=== PATIENT | female | born 1935 | race Caucasian/White ===

== ENCOUNTER 2018-02-19 09:22 | Inpatient (IN) ==
[2018-02-19] MEDS ORDERED: ONDANSETRON 4 MG/2 ML VIAL IV PRN (09:48)
[2018-02-19] MEDS ORDERED: MAGNESIUM SULF RIDER 4 GM in PREMIX 1 EACH IV PRN (09:48)
[2018-02-19] MEDS ORDERED: MORPHINE 4 MG/1 ML VIAL IV PRN (09:48)
[2018-02-19] MEDS ORDERED: ZALEPLON 5 MG CAPSULE PO PRN (09:48)
[2018-02-19] MEDS ORDERED: MAGNESIUM SULF RIDER 2 GM in PREMIX 1 EACH IV PRN (09:48)
[2018-02-19 12:09] LABS: Basophils % 0.3 % (0.0-0.8); Eosinophils % 0.1 % (0.00-10.9); Hematocrit 37.3 VOL% (35.7-47.0); Hemoglobin 11.5 GM/DL (12.0-16.0); Immature Granulocytes % 0.5 %; Immature Granulocytes Absolute 0.08 #; Lymphocytes # 1.3 10*3/uL (1.4-4.0); Lymphocytes % 8.4 % (21.3-54.2); Mean Corpuscular HGB Conc 30.8 GM/DL (32-36); Mean Corpuscular Hemoglobin 28 PG (27-34); Mean Corpuscular Volume 89.7 FL (87-102); Mean Platelet Volume 12.9 FL (9.6-12.0); Monocytes # 0.9 10*3/uL (0.11-0.8); Monocytes % 5.8 % (1.7-12.7); Neutrophils # 13.3 10*3/uL (1.4-7.4); Neutrophils % 84.9 % (38.7-73.9); Platelet Count 250 T/CUMM (130-400); Red Blood Count 4.16 MC/CUMM (3.8-5.5); Red Cell Distribution Width 14.2 % (9.3-17.3); White Blood Count 15.7 T/CUMM (4-12)
[2018-02-19 12:39] LABS: Albumin 3.4 G/DL (3.4-5.0); Calcium 10.6 MG/DL (8.5-10.1); Osmolality,Calculated 282.7 MOS/KG (273-304); Potassium 4.1 MMOL/L (3.5-5.1); Total Protein 7.6 G/DL (6.4-8.3)
[2018-02-19 13:24] LABS: Apearance,Urine CLEAR (Clear); Bacteria,Urine Occasional /HPF (Few); Bilirubin,Urine Negative (Negative); Blood, Urine Large mg/dL (Negative); Glucose,Urine (UA) Negative (Negative); Ketones,Urine Negative (Negative); Nitrite,Urine Negative (Negative); Protein,Urine Negative; RBC,Urine <1 /HPF (0-4); Urine Color Straw (Yellow); Urine Specific Gravity 1.005 (1.001-1.035); Urine Urobilinogen < 2.0 EU/DL (0.2-1.0); WBC,Urine <1 /HPF (0-6)
[2018-02-19] MEDS: ACETAMINOPHEN 325 MG TABLET PO PRN (14:01)
[2018-02-19] MEDS ORDERED: ASPIRIN CHEW 81 MG TABLET PO ONE (14:25)
[2018-02-19] MEDS: CARVEDILOL 3.125 MG TABLET PO SCH ×2 (14:45→21:44)
[2018-02-19] MEDS: CAPTOPRIL 6.25 MG TABLET PO SCH ×2 (14:45→21:43)
[2018-02-19] MEDS: NITROGLYCERIN 2% OINT 1 INCH/GM PACK TOP SCH ×2 (14:46→18:06)
[2018-02-19] MEDS: FUROSEMIDE 40 MG/4 ML VIAL IV SCH (16:00)
[2018-02-19 16:25] LABS: INR 3.3
[2018-02-19] MEDS ORDERED: diphenhydrAMINE CAP 25 MG CAPSULE PO PRN (16:25)
[2018-02-19] MEDS ORDERED: ENOXAPARIN 40 MG/0.4 ML SYRINGE SUBCUT SCH (17:00)
[2018-02-19 18:39] LABS: Apearance,Urine CLEAR (Clear); Bacteria,Urine Occasional /HPF (Few); Bilirubin,Urine Negative (Negative); Blood, Urine Moderate mg/dL (Negative); Glucose,Urine (UA) Negative (Negative); Hyaline Casts,Urine 5 /LPF (0-3); Ketones,Urine Negative (Negative); Mucus,Urine Occasional /LPF (Occasional); Nitrite,Urine Negative (Negative); Protein,Urine Negative; RBC,Urine 9 /HPF (0-4); Urine Color Yellow (Yellow); Urine Specific Gravity 1.008 (1.001-1.035); Urine Urobilinogen < 2.0 EU/DL (0.2-1.0); WBC,Urine 6 /HPF (0-6)
[2018-02-19] MEDS: ROSUVASTATIN 20 MG TABLET PO SCH (21:43)
[2018-02-19] MEDS: ASCORBIC ACID 500 MG TABLET PO SCH (21:44)
[2018-02-19] MEDS: ACETAMINOPHEN 500 MG TABLET PO SCH (21:44)
[2018-02-20] MEDS: NITROGLYCERIN 2% OINT 1 INCH/GM PACK TOP SCH ×3 (00:14→11:52)
[2018-02-20 04:40] LABS: Basophils # 0.1 10*3/uL (0.0-0.2); Basophils % 0.6 % (0.0-0.8); Eosinophils # 0.4 10*3/uL (0.0-0.87); Eosinophils % 4.2 % (0.00-10.9); Hematocrit 31.5 VOL% (35.7-47.0); Hemoglobin 9.9 GM/DL (12.0-16.0); Immature Granulocytes % 0.2 %; Immature Granulocytes Absolute 0.02 #; Lymphocytes # 2.3 10*3/uL (1.4-4.0); Lymphocytes % 26.9 % (21.3-54.2); Mean Corpuscular HGB Conc 31.4 GM/DL (32-36); Mean Corpuscular Hemoglobin 28 PG (27-34); Mean Corpuscular Volume 89.5 FL (87-102); Mean Platelet Volume 12.3 FL (9.6-12.0); Monocytes # 0.8 10*3/uL (0.11-0.8); Monocytes % 9.3 % (1.7-12.7); Neutrophils # 4.9 10*3/uL (1.4-7.4); Neutrophils % 58.8 % (38.7-73.9); Platelet Count 198 T/CUMM (130-400); Red Blood Count 3.52 MC/CUMM (3.8-5.5); Red Cell Distribution Width 14.1 % (9.3-17.3); White Blood Count 8.4 T/CUMM (4-12)
[2018-02-20 04:52] LABS: INR 3.7
[2018-02-20 05:03] LABS: CKMB % 5.1 %
[2018-02-20 05:10] LABS: Albumin 2.6 G/DL (3.4-5.0); Bilirubin,Total 0.9 MG/DL (0.2-1.0); Calcium 10.4 MG/DL (8.5-10.1); Osmolality,Calculated 282.5 MOS/KG (273-304); Potassium 3.8 MMOL/L (3.5-5.1); Risk Ratio 4.18; VLDL CHOLESTEROL 28.2 MG/DL
[2018-02-20 05:57] LABS: Troponin I 3.9 NG/ML (0.00-0.045)
[2018-02-20 06:03] LABS: PT Patient Result 39.3 SECS
[2018-02-20] MEDS ORDERED: PANTOPRAZOLE 40 MG TABLET PO SCH (09:00)
[2018-02-20] MEDS ORDERED: ASPIRIN EC 81 MG TABLET PO SCH (09:00)
[2018-02-20] MEDS: GLUCOSAMINE 500 MG TABLET PO SCH (09:59)
[2018-02-20] MEDS: CHOLECALCIFEROL 400 UNIT TABLET PO SCH (10:00)
[2018-02-20] MEDS: OMEGA 3 ACID ETHYL ESTERS 1 GM CAPSULE PO SCH (10:00)
[2018-02-20] MEDS: ASPIRIN CHEW 81 MG TABLET PO SCH (10:00)
[2018-02-20] MEDS: CAPTOPRIL 6.25 MG TABLET PO SCH ×2 (10:00→20:13)
[2018-02-20] MEDS: PANTOPRAZOLE 40 MG TABLET PO SCH (10:00)
[2018-02-20] MEDS: ASCORBIC ACID 500 MG TABLET PO SCH ×2 (10:00→20:13)
[2018-02-20] MEDS: ALLOPURINOL 100 MG TABLET PO SCH (10:00)
[2018-02-20] MEDS: MAGNESIUM OXIDE 400 MG TABLET PO SCH (10:00)
[2018-02-20] MEDS: ACETAMINOPHEN 500 MG TABLET PO SCH ×3 (10:01→20:12)
[2018-02-20] MEDS: CETIRIZINE 10 MG TABLET PO SCH (10:01)
[2018-02-20] MEDS: CARVEDILOL 3.125 MG TABLET PO SCH ×3 (10:01→20:13)
[2018-02-20] MEDS: FUROSEMIDE 40 MG/4 ML VIAL IV SCH ×2 (10:02→15:05)
[2018-02-20] MEDS ORDERED: GLUCAGON 1 MG VIAL IM PRN (10:18)
[2018-02-20] MEDS ORDERED: DEXTROSE 50% 25 GM/50 ML SYRINGE IV PRN (10:18)
[2018-02-20] MEDS: ALBUTEROL/IPRATROPIUM 3 ML NEB RESP TX SCH ×2 (14:50→19:24)
[2018-02-20] MEDS: ISOSORBIDE MONONITRATE 30 MG TABLET PO SCH (15:04)
[2018-02-20] MEDS: LEVOFLOXACIN INJ 500 MG in PREMIX 1 EACH IV SCH (15:05)
[2018-02-20] MEDS: ROSUVASTATIN 20 MG TABLET PO SCH (20:13)
[2018-02-21] MEDS: ALBUTEROL/IPRATROPIUM 3 ML NEB RESP TX SCH ×4 (01:02→20:20)
[2018-02-21] MEDS: CARVEDILOL 3.125 MG TABLET PO SCH ×4 (02:17→20:38)
[2018-02-21] MEDS ORDERED: ENOXAPARIN 80 MG/0.8 ML SYRINGE SUBCUT SCH (09:00)
[2018-02-21] MEDS: ASCORBIC ACID 500 MG TABLET PO SCH ×2 (09:13→20:38)
[2018-02-21] MEDS: ACETAMINOPHEN 500 MG TABLET PO SCH ×3 (09:14→20:39)
[2018-02-21] MEDS: FUROSEMIDE 40 MG/4 ML VIAL IV SCH ×2 (09:14→16:41)
[2018-02-21] MEDS: GLUCOSAMINE 500 MG TABLET PO SCH (09:15)
[2018-02-21] MEDS: CHOLECALCIFEROL 400 UNIT TABLET PO SCH (09:15)
[2018-02-21] MEDS: OMEGA 3 ACID ETHYL ESTERS 1 GM CAPSULE PO SCH (09:15)
[2018-02-21] MEDS: ALLOPURINOL 100 MG TABLET PO SCH (09:15)
[2018-02-21] MEDS: MAGNESIUM OXIDE 400 MG TABLET PO SCH (09:16)
[2018-02-21] MEDS: CAPTOPRIL 6.25 MG TABLET PO SCH ×2 (09:16→20:39)
[2018-02-21] MEDS: CETIRIZINE 10 MG TABLET PO SCH (09:16)
[2018-02-21] MEDS: ISOSORBIDE MONONITRATE 30 MG TABLET PO SCH (09:16)
[2018-02-21] MEDS: ASPIRIN CHEW 81 MG TABLET PO SCH (09:17)
[2018-02-21] MEDS: PANTOPRAZOLE 40 MG TABLET PO SCH (09:17)
[2018-02-21 10:41] LABS: INR 2.3
[2018-02-21 10:49] LABS: PT Patient Result 24.9 SECS
[2018-02-21] MEDS: NITROGLYCERIN 2% OINT 1 INCH/GM PACK TOP SCH ×2 (12:34→17:49)
[2018-02-21] MEDS: LEVOFLOXACIN INJ 500 MG in PREMIX 1 EACH IV SCH (16:41)
[2018-02-21] MEDS: ROSUVASTATIN 20 MG TABLET PO SCH (20:39)
[2018-02-22] MEDS: NITROGLYCERIN 2% OINT 1 INCH/GM PACK TOP SCH ×4 (00:07→17:40)
[2018-02-22] MEDS: ALBUTEROL/IPRATROPIUM 3 ML NEB RESP TX SCH ×4 (01:51→19:42)
[2018-02-22] MEDS: CARVEDILOL 3.125 MG TABLET PO SCH ×4 (04:33→21:10)
[2018-02-22] MEDS: FUROSEMIDE 40 MG/4 ML VIAL IV SCH ×2 (09:41→15:49)
[2018-02-22] MEDS: CAPTOPRIL 6.25 MG TABLET PO SCH ×2 (09:42→21:10)
[2018-02-22] MEDS: GLUCOSAMINE 500 MG TABLET PO SCH (09:42)
[2018-02-22] MEDS: MAGNESIUM OXIDE 400 MG TABLET PO SCH (09:43)
[2018-02-22] MEDS: CHOLECALCIFEROL 400 UNIT TABLET PO SCH (09:43)
[2018-02-22] MEDS: CETIRIZINE 10 MG TABLET PO SCH (09:43)
[2018-02-22] MEDS: ALLOPURINOL 100 MG TABLET PO SCH (09:43)
[2018-02-22] MEDS: PANTOPRAZOLE 40 MG TABLET PO SCH (09:43)
[2018-02-22] MEDS: ASCORBIC ACID 500 MG TABLET PO SCH ×2 (09:43→21:10)
[2018-02-22] MEDS: ASPIRIN CHEW 81 MG TABLET PO SCH (09:43)
[2018-02-22] MEDS: OMEGA 3 ACID ETHYL ESTERS 1 GM CAPSULE PO SCH (09:43)
[2018-02-22] MEDS: ACETAMINOPHEN 500 MG TABLET PO SCH ×3 (09:44→21:10)
[2018-02-22] MEDS: LEVOFLOXACIN INJ 500 MG in PREMIX 1 EACH IV SCH (15:47)
[2018-02-22] MEDS: ROSUVASTATIN 20 MG TABLET PO SCH (21:10)
[2018-02-23] MEDS: ALBUTEROL/IPRATROPIUM 3 ML NEB RESP TX SCH ×4 (00:32→19:36)
[2018-02-23] MEDS: NITROGLYCERIN 2% OINT 1 INCH/GM PACK TOP SCH ×5 (00:56→23:29)
[2018-02-23] MEDS: CARVEDILOL 3.125 MG TABLET PO SCH ×4 (03:44→21:10)
[2018-02-23] MEDS: GLUCOSAMINE 500 MG TABLET PO SCH (08:44)
[2018-02-23] MEDS: ACETAMINOPHEN 500 MG TABLET PO SCH ×3 (08:45→21:10)
[2018-02-23] MEDS: CHOLECALCIFEROL 400 UNIT TABLET PO SCH (08:45)
[2018-02-23] MEDS: MAGNESIUM OXIDE 400 MG TABLET PO SCH (08:45)
[2018-02-23] MEDS: FUROSEMIDE 40 MG/4 ML VIAL IV SCH ×2 (08:46→15:35)
[2018-02-23] MEDS: CETIRIZINE 10 MG TABLET PO SCH (08:46)
[2018-02-23] MEDS: ASPIRIN CHEW 81 MG TABLET PO SCH (08:46)
[2018-02-23] MEDS: PANTOPRAZOLE 40 MG TABLET PO SCH (08:46)
[2018-02-23] MEDS: CAPTOPRIL 6.25 MG TABLET PO SCH ×2 (08:46→21:10)
[2018-02-23] MEDS: OMEGA 3 ACID ETHYL ESTERS 1 GM CAPSULE PO SCH (08:46)
[2018-02-23] MEDS: ASCORBIC ACID 500 MG TABLET PO SCH ×2 (08:46→21:10)
[2018-02-23] MEDS: ALLOPURINOL 100 MG TABLET PO SCH (08:46)
[2018-02-23 11:40] LABS: Basophils # 0.1 10*3/uL (0.0-0.2); Basophils % 0.7 % (0.0-0.8); Eosinophils # 0.5 10*3/uL (0.0-0.87); Eosinophils % 5.6 % (0.00-10.9); Hematocrit 33.3 VOL% (35.7-47.0); Hemoglobin 10.5 GM/DL (12.0-16.0); Immature Granulocytes % 0.4 %; Immature Granulocytes Absolute 0.03 #; Lymphocytes # 1.5 10*3/uL (1.4-4.0); Lymphocytes % 17.6 % (21.3-54.2); Mean Corpuscular HGB Conc 31.5 GM/DL (32-36); Mean Corpuscular Hemoglobin 28 PG (27-34); Mean Corpuscular Volume 89.5 FL (87-102); Mean Platelet Volume 11.5 FL (9.6-12.0); Monocytes # 0.7 10*3/uL (0.11-0.8); Monocytes % 8.9 % (1.7-12.7); Neutrophils # 5.6 10*3/uL (1.4-7.4); Neutrophils % 66.8 % (38.7-73.9); Platelet Count 263 T/CUMM (130-400); Red Blood Count 3.72 MC/CUMM (3.8-5.5); Red Cell Distribution Width 14.1 % (9.3-17.3); White Blood Count 8.3 T/CUMM (4-12)
[2018-02-23 11:48] LABS: INR 1.4; PT Patient Result 14.7 SECS
[2018-02-23 12:09] LABS: Calcium 10.2 MG/DL (8.5-10.1); Potassium 4.1 MMOL/L (3.5-5.1)
[2018-02-23] MEDS: SELENIUM 200 MCG TABLET PO SCH (15:33)
[2018-02-23] MEDS: LEVOFLOXACIN INJ 500 MG in PREMIX 1 EACH IV SCH ×3 (15:36→18:40)
[2018-02-23] MEDS ORDERED: ROSUVASTATIN 10 MG TABLET PO SCH (21:00)
[2018-02-23] MEDS: ROSUVASTATIN 10 MG TABLET PO SCH (21:12)
[2018-02-24] MEDS: ALBUTEROL/IPRATROPIUM 3 ML NEB RESP TX SCH ×4 (00:31→19:56)
[2018-02-24] MEDS: CARVEDILOL 3.125 MG TABLET PO SCH ×4 (03:00→21:23)
[2018-02-24] MEDS: ACETAMINOPHEN 325 MG TABLET PO PRN (03:00)
[2018-02-24] MEDS: DOCUSATE SODIUM 100 MG CAPSULE PO PRN ×2 (04:06→21:33)
[2018-02-24 04:35] LABS: Basophils # 0.1 10*3/uL (0.0-0.2); Basophils % 0.8 % (0.0-0.8); Eosinophils # 0.6 10*3/uL (0.0-0.87); Eosinophils % 6.5 % (0.00-10.9); Hematocrit 32.5 VOL% (35.7-47.0); Immature Granulocytes % 0.2 %; Immature Granulocytes Absolute 0.02 #; Lymphocytes # 2.2 10*3/uL (1.4-4.0); Lymphocytes % 24.5 % (21.3-54.2); Mean Corpuscular HGB Conc 30.8 GM/DL (32-36); Mean Corpuscular Hemoglobin 28 PG (27-34); Mean Corpuscular Volume 89.5 FL (87-102); Mean Platelet Volume 12.4 FL (9.6-12.0); Monocytes # 0.8 10*3/uL (0.11-0.8); Monocytes % 8.5 % (1.7-12.7); Neutrophils # 5.3 10*3/uL (1.4-7.4); Neutrophils % 59.5 % (38.7-73.9); Platelet Count 246 T/CUMM (130-400); Red Blood Count 3.63 MC/CUMM (3.8-5.5); White Blood Count 8.8 T/CUMM (4-12)
[2018-02-24 04:40] LABS: Calcium 10.5 MG/DL (8.5-10.1); Osmolality,Calculated 278.1 MOS/KG (273-304); Potassium 3.6 MMOL/L (3.5-5.1)
[2018-02-24 05:02] LABS: INR 1.2
[2018-02-24] MEDS: NITROGLYCERIN 2% OINT 1 INCH/GM PACK TOP SCH ×3 (06:21→17:51)
[2018-02-24] MEDS ORDERED: ENOXAPARIN 40 MG/0.4 ML SYRINGE SUBCUT ONE (09:00)
[2018-02-24] MEDS: FUROSEMIDE 40 MG/4 ML VIAL IV SCH ×2 (09:21→15:47)
[2018-02-24] MEDS: MAGNESIUM OXIDE 400 MG TABLET PO SCH (09:22)
[2018-02-24] MEDS: GLUCOSAMINE 500 MG TABLET PO SCH (09:22)
[2018-02-24] MEDS: ASPIRIN CHEW 81 MG TABLET PO SCH (09:22)
[2018-02-24] MEDS: OMEGA 3 ACID ETHYL ESTERS 1 GM CAPSULE PO SCH (09:22)
[2018-02-24] MEDS: CAPTOPRIL 6.25 MG TABLET PO SCH ×2 (09:22→21:23)
[2018-02-24] MEDS: CETIRIZINE 10 MG TABLET PO SCH (09:23)
[2018-02-24] MEDS: CHOLECALCIFEROL 400 UNIT TABLET PO SCH (09:23)
[2018-02-24] MEDS: ACETAMINOPHEN 500 MG TABLET PO SCH ×3 (09:23→21:23)
[2018-02-24] MEDS: PANTOPRAZOLE 40 MG TABLET PO SCH (09:23)
[2018-02-24] MEDS: SELENIUM 200 MCG TABLET PO SCH (09:23)
[2018-02-24] MEDS: ALLOPURINOL 100 MG TABLET PO SCH (09:23)
[2018-02-24] MEDS: ASCORBIC ACID 500 MG TABLET PO SCH ×2 (09:23→21:23)
[2018-02-24] MEDS ORDERED: DEXTROSE 50% 25 GM/50 ML SYRINGE IV PRN (10:19)
[2018-02-24] MEDS ORDERED: GLUCAGON 1 MG VIAL IM PRN (10:19)
[2018-02-24] MEDS: SODIUM CHLORIDE 0.9% 1,000 ML IV SCH (11:49)
[2018-02-24] MEDS ORDERED: PHENOL 1.4% THROAT SPRAY 177 ML BOTTLE PO PRN (11:58)
[2018-02-24] MEDS: LEVOFLOXACIN INJ 500 MG in PREMIX 1 EACH IV SCH ×2 (14:37→17:52)
[2018-02-24] MEDS: CHLORHEXIDINE 0.12% ORAL RINSE 60 ML BOTTLE SWISH/SPIT SCH (21:24)
[2018-02-24] MEDS: ROSUVASTATIN 10 MG TABLET PO SCH (21:24)
[2018-02-25] MEDS: NITROGLYCERIN 2% OINT 1 INCH/GM PACK TOP SCH ×4 (00:30→17:00)
[2018-02-25] MEDS: ALBUTEROL/IPRATROPIUM 3 ML NEB RESP TX SCH ×4 (01:54→19:25)
[2018-02-25 04:33] LABS: Basophils # 0.1 10*3/uL (0.0-0.2); Eosinophils # 0.6 10*3/uL (0.0-0.87); Eosinophils % 7.8 % (0.00-10.9); Hematocrit 31.7 VOL% (35.7-47.0); Immature Granulocytes % 0.3 %; Immature Granulocytes Absolute 0.02 #; Lymphocytes % 28.7 % (21.3-54.2); Mean Corpuscular HGB Conc 31.5 GM/DL (32-36); Mean Corpuscular Hemoglobin 28 PG (27-34); Mean Corpuscular Volume 88.8 FL (87-102); Mean Platelet Volume 12.5 FL (9.6-12.0); Monocytes # 0.8 10*3/uL (0.11-0.8); Monocytes % 11.2 % (1.7-12.7); Neutrophils # 3.6 10*3/uL (1.4-7.4); Platelet Count 223 T/CUMM (130-400); Red Blood Count 3.57 MC/CUMM (3.8-5.5); Red Cell Distribution Width 13.9 % (9.3-17.3); White Blood Count 7.1 T/CUMM (4-12)
[2018-02-25] MEDS: CARVEDILOL 3.125 MG TABLET PO SCH ×4 (04:39→21:12)
[2018-02-25 04:53] LABS: Albumin 2.9 G/DL (3.4-5.0); Bilirubin,Total 0.4 MG/DL (0.2-1.0); Calcium 10.4 MG/DL (8.5-10.1); Osmolality,Calculated 283.7 MOS/KG (273-304); Potassium 3.5 MMOL/L (3.5-5.1); Total Protein 6.4 G/DL (6.4-8.3)
[2018-02-25] MEDS: CHOLECALCIFEROL 400 UNIT TABLET PO SCH (09:30)
[2018-02-25] MEDS: ALLOPURINOL 100 MG TABLET PO SCH (09:30)
[2018-02-25] MEDS: ASPIRIN CHEW 81 MG TABLET PO SCH (09:31)
[2018-02-25] MEDS: GLUCOSAMINE 500 MG TABLET PO SCH (09:31)
[2018-02-25] MEDS: POTASSIUM CHLORIDE 20 MEQ TABLET PO PRN ×2 (09:31→12:20)
[2018-02-25] MEDS: OMEGA 3 ACID ETHYL ESTERS 1 GM CAPSULE PO SCH (09:31)
[2018-02-25] MEDS: SELENIUM 200 MCG TABLET PO SCH (09:32)
[2018-02-25] MEDS: ASCORBIC ACID 500 MG TABLET PO SCH ×2 (09:32→21:11)
[2018-02-25] MEDS: MAGNESIUM OXIDE 400 MG TABLET PO SCH (09:32)
[2018-02-25] MEDS: ACETAMINOPHEN 500 MG TABLET PO SCH ×3 (09:32→21:10)
[2018-02-25] MEDS: PANTOPRAZOLE 40 MG TABLET PO SCH (09:33)
[2018-02-25] MEDS: CETIRIZINE 10 MG TABLET PO SCH (09:33)
[2018-02-25] MEDS: CAPTOPRIL 6.25 MG TABLET PO SCH ×2 (09:33→21:11)
[2018-02-25] MEDS: CHLORHEXIDINE 0.12% ORAL RINSE 60 ML BOTTLE SWISH/SPIT SCH ×2 (09:34→21:13)
[2018-02-25] MEDS: FUROSEMIDE 40 MG/4 ML VIAL IV SCH ×2 (09:34→16:56)
[2018-02-25] MEDS ORDERED: CEFUROXIME INJ 1,500 MG in SODIUM CHLORIDE 0.9% 100 ML IV ONE (10:19)
[2018-02-25] MEDS ORDERED: BISACODYL 5 MG TABLET PO ONE (11:34)
[2018-02-25] MEDS: DOCUSATE SODIUM 100 MG CAPSULE PO PRN (12:20)
[2018-02-25] MEDS: SODIUM CHLORIDE 0.9% 1,000 ML IV SCH (12:24)
[2018-02-25] MEDS ORDERED: BISACODYL 10 MG SUPP RECTAL ONE (13:15)
[2018-02-25] MEDS: CHLORHEXIDINE 4% SOLN 118 ML BOTTLE TOP SCH ×2 (15:13→21:20)
[2018-02-25] MEDS: LEVOFLOXACIN INJ 500 MG in PREMIX 1 EACH IV SCH (15:13)
[2018-02-25] MEDS: ROSUVASTATIN 10 MG TABLET PO SCH (21:12)
[2018-02-26] MEDS: NITROGLYCERIN 2% OINT 1 INCH/GM PACK TOP SCH ×2 (00:20→05:48)
[2018-02-26] MEDS: ALBUTEROL/IPRATROPIUM 3 ML NEB RESP TX SCH ×2 (00:38→07:10)
[2018-02-26 04:47] LABS: ABG Base Excess 2.1 MMOL/L (-2.5-2.5); ABG HCO3 26.2 MMOL/L (20-26); ABG PCO2 42.6 MM HG (35-48); ABG PH 7.409 (7.35-7.45); ABG TCO2 24.3 MMOL/L (23-27); Allen Test Positive
[2018-02-26] MEDS ORDERED: PAPAVERINE 60 MG/2 ML VIAL ONE (04:47)
[2018-02-26] MEDS ORDERED: VANCOMYCIN 1,000 MG VIAL ONE (04:47)
[2018-02-26] MEDS: CARVEDILOL 3.125 MG TABLET PO SCH ×2 (05:48→10:40)
[2018-02-26] MEDS ORDERED: SUFentanil 250 MCG/5 ML AMP ONE (05:52)
[2018-02-26] MEDS ORDERED: MIDAZOLAM 10 MG/2 ML VIAL ONE (05:53)
[2018-02-26] MEDS ORDERED: FAMOTIDINE 20 MG TABLET PO ONE (06:00)
[2018-02-26] MEDS ORDERED: CLINDAMYCIN INJ 300 MG in PREMIX 1 EACH IV ONE (06:00)
[2018-02-26] MEDS ORDERED: MINERAL OIL/PETROLATUM OPH OINT 3.5 GM TUBE ONE (06:10)
[2018-02-26 07:46] LABS: ABG Base Excess 1.4 MMOL/L (-2.5-2.5); ABG HCO3 25.7 MMOL/L (20-26); ABG PCO2 41.4 MM HG (35-48); ABG PH 7.409 (7.35-7.45); ABG TCO2 23.9 MMOL/L (23-27); Glucose Heart Surgery 144 MG/DL (74-106); Hematocrit Heart Surgery 29.8 PERCENT (37-47); Hemoglobin Heart Surgery 9.6 G/DL (12.0-16.0); Ionized Calcium Arterial 1.39 MMOL/L (1.21-1.46); PCO2 Patient Temp Arterial 41.4 MMHG; PH Patient Temp Arterial 7.409; Patient Temperature 37 CELCIUS; Potassium Heart/CVR 3.7 MMOL/L (3.5-5.1); Sodium Heart/CVR 135 MMOL/L (135-145)
[2018-02-26 09:00] LABS: Apearance,Urine CLEAR (Clear); Bilirubin,Urine Negative (Negative); Blood, Urine Negative (Negative); Glucose,Urine (UA) Negative (Negative); Ketones,Urine Negative (Negative); Nitrite,Urine Negative (Negative); Protein,Urine Negative; Squamous Epithelial Cell,Urine Occasional /HPF (0-10); Urine Color Straw (Yellow); Urine Urobilinogen < 2.0 EU/DL (0.2-1.0); WBC,Urine <1 /HPF (0-6)
[2018-02-26 09:12] LABS: Hematocrit Heart Surgery 20.5 PERCENT (37-47); Hemoglobin Heart Surgery 6.5 G/DL (12.0-16.0); PH Patient Temp Venous 7.466; PO2 Patient Temp Venous 44.6 MM HG; VBG Base Excess 2.4 MEQ/L (0-4); VBG HCO3 26.5 MEQ/L (24-28); VBG Oxygen Saturation 88.4 %; VBG PCO2 39.7 MMHG (41-51); VBG PH 7.437
[2018-02-26 09:42] LABS: Hematocrit Heart Surgery 26.4 PERCENT (37-47); Hemoglobin Heart Surgery 8.5 G/DL (12.0-16.0); PCO2 Patient Temp Venous 35.1 MM HG; PH Patient Temp Venous 7.477; PO2 Patient Temp Venous 41.4 MM HG; Potassium Heart/CVR 4.7 MMOL/L (3.5-5.1); VBG Base Excess 2.5 MEQ/L (0-4); VBG HCO3 26.4 MEQ/L (24-28); VBG Oxygen Saturation 81.8 %; VBG PCO2 35.1 MMHG (41-51); VBG PH 7.477; VBG PO2 41.4 MMHG (17-40)
[2018-02-26] MEDS ORDERED: LIDOCAINE 100 MG/5 ML SYRINGE ONE (10:01)
[2018-02-26] MEDS ORDERED: SODIUM BICARBONATE 50 MEQ/50 ML SYRINGE IV ONE ×2 (10:01→10:26)
[2018-02-26] MEDS ORDERED: ALBUMIN 5% 12.5 GM/250 ML VIAL IV ONE (10:01)
[2018-02-26] MEDS ORDERED: PHENYLEPHRINE DRIP 40 MG/250 ML PREMIX IV ONE (10:01)
[2018-02-26] MEDS ORDERED: CALCIUM CHLORIDE 1,000 MG/10 ML SYRINGE IV ONE (10:01)
[2018-02-26] MEDS ORDERED: NITROPRUSSIDE 50 MG/2 ML VIAL ONE (10:01)
[2018-02-26] MEDS ORDERED: POTASSIUM CHLORIDE RIDER 100 ML IV ONE (10:01)
[2018-02-26] MEDS ORDERED: EPINEPHrine 1 MG/10 ML SYRINGE ONE (10:01)
[2018-02-26] MEDS ORDERED: DOBUTamine 0 MG/0 ML PREMIX IV ONE (10:02)
[2018-02-26] MEDS ORDERED: ATROPINE 1 MG/10 ML SYRINGE ONE (10:02)
[2018-02-26] MEDS ORDERED: MANNITOL 100 GM/500 ML BAG IV ONE (10:25)
[2018-02-26 10:26] LABS: ABG Base Excess -0.7 MMOL/L (-2.5-2.5); ABG HCO3 23.8 MMOL/L (20-26); ABG PCO2 35.1 MM HG (35-48); ABG PH 7.429 (7.35-7.45); ABG TCO2 21.5 MMOL/L (23-27); Glucose Heart Surgery 256 MG/DL (74-106); Hematocrit Heart Surgery 26.3 PERCENT (37-47); Hemoglobin Heart Surgery 8.5 G/DL (12.0-16.0); Ionized Calcium Arterial 1.31 MMOL/L (1.21-1.46); PCO2 Patient Temp Arterial 35.1 MMHG; PH Patient Temp Arterial 7.429; Patient Temperature 37 CELCIUS; Potassium Heart/CVR 3.9 MMOL/L (3.5-5.1); Sodium Heart/CVR 133 MMOL/L (135-145)
[2018-02-26] MEDS ORDERED: PHENYLEPHRINE 1 MG/10 ML SYRINGE IV ONE ×2 (10:26→11:32)
[2018-02-26] MEDS ORDERED: FUROSEMIDE 20 MG/2 ML VIAL ONE (10:26)
[2018-02-26] MEDS ORDERED: methylPREDNISolone SOD SUC 1,000 MG/8 ML VIAL ONE (10:26)
[2018-02-26] MEDS ORDERED: PROTAMINE SULFATE 250 MG/25 ML VIAL IV ONE (10:26)
[2018-02-26] MEDS ORDERED: MAGNESIUM SULFATE 10 GM/20 ML VIAL IV ONE (10:26)
[2018-02-26] MEDS ORDERED: DEXTROSE 5% KCL 20 MEQ 20 MEQ/1,000 ML BAG IV ONE (10:26)
[2018-02-26] MEDS ORDERED: ALBUMIN 25% 25 GM/100 ML VIAL IV ONE (10:26)
[2018-02-26] MEDS ORDERED: HEPARIN 10,000 UNIT/10 ML VIAL ONE (10:26)
[2018-02-26] MEDS: FUROSEMIDE 40 MG/4 ML VIAL IV SCH (10:39)
[2018-02-26] MEDS: ASPIRIN CHEW 81 MG TABLET PO SCH (10:39)
[2018-02-26] MEDS: OMEGA 3 ACID ETHYL ESTERS 1 GM CAPSULE PO SCH (10:40)
[2018-02-26] MEDS: CAPTOPRIL 6.25 MG TABLET PO SCH (10:40)
[2018-02-26] MEDS: GLUCOSAMINE 500 MG TABLET PO SCH (10:40)
[2018-02-26] MEDS: CHLORHEXIDINE 4% SOLN 118 ML BOTTLE TOP SCH (10:40)
[2018-02-26] MEDS: PANTOPRAZOLE 40 MG TABLET PO SCH (10:41)
[2018-02-26] MEDS: MAGNESIUM OXIDE 400 MG TABLET PO SCH (10:41)
[2018-02-26] MEDS: CHLORHEXIDINE 0.12% ORAL RINSE 60 ML BOTTLE SWISH/SPIT SCH ×2 (10:41→21:28)
[2018-02-26] MEDS: SELENIUM 200 MCG TABLET PO SCH (10:41)
[2018-02-26] MEDS: ACETAMINOPHEN 500 MG TABLET PO SCH (10:41)
[2018-02-26] MEDS: ASCORBIC ACID 500 MG TABLET PO SCH (10:42)
[2018-02-26] MEDS: ALLOPURINOL 100 MG TABLET PO SCH (10:42)
[2018-02-26] MEDS: CHOLECALCIFEROL 400 UNIT TABLET PO SCH (10:42)
[2018-02-26] MEDS: SODIUM CHLORIDE 0.9% 1,000 ML IV SCH (10:42)
[2018-02-26] MEDS: CETIRIZINE 10 MG TABLET PO SCH (10:42)
[2018-02-26] MEDS ORDERED: AMIODARONE 450 MG/9 ML VIAL IV ONE (10:55)
[2018-02-26] MEDS ORDERED: DOBUTamine 500 MG/250 ML PREMIX IV ONE (10:58)
[2018-02-26] MEDS: SODIUM CHLORIDE 0.45% 1,000 ML IV SCH ×2 (11:10)
[2018-02-26] MEDS ORDERED: DOBUTamine 500 MG/250 ML PREMIX IV PRN (11:15)
[2018-02-26] MEDS ORDERED: AMIODARONE INJ 450 MG in DEXTROSE 5% 241 ML IV SCH ×2 (11:15→17:15)
[2018-02-26] MEDS ORDERED: CALCIUM CHLORIDE 1,000 MG/10 ML SYRINGE IV PRN (11:28)
[2018-02-26] MEDS ORDERED: ONDANSETRON 4 MG/2 ML VIAL IV PRN (11:28)
[2018-02-26] MEDS ORDERED: INSULIN REGULAR 100 UNIT/ML IV ONE (11:28)
[2018-02-26] MEDS ORDERED: DEXTROSE 50% 25 GM/50 ML SYRINGE IV PRN ×2 (11:28)
[2018-02-26] MEDS ORDERED: LACTATED RINGERS 250 ML IV PRN (11:28)
[2018-02-26] MEDS ORDERED: VECURONIUM 10 MG VIAL IV PRN ×2 (11:28)
[2018-02-26] MEDS ORDERED: MORPHINE 10 MG/1 ML VIAL IV PRN (11:28)
[2018-02-26] MEDS ORDERED: MIDAZOLAM 2 MG/2 ML VIAL IV PRN (11:28)
[2018-02-26] MEDS ORDERED: ACETAMINOPHEN 650 MG SUPP RECTAL PRN (11:28)
[2018-02-26] MEDS ORDERED: PHENYLEPHRINE DRIP 40 MG/250 ML PREMIX IV PRN (11:28)
[2018-02-26] MEDS ORDERED: MIDAZOLAM 10 MG/2 ML VIAL IV PRN (11:28)
[2018-02-26] MEDS ORDERED: MAGNESIUM SULF RIDER 4 GM in PREMIX 1 EACH IV PRN (11:28)
[2018-02-26] MEDS ORDERED: NITROPRUSSIDE 100 MG in DEXTROSE 5% 250 ML IV PRN (11:28)
[2018-02-26] MEDS ORDERED: SEVOFLURANE 1 UNIT/15 MINUTE INH ONE (11:31)
[2018-02-26] MEDS ORDERED: PHENYLEPHRINE DRIP 20 MG/250 ML PREMIX IV ONE (11:31)
[2018-02-26] MEDS ORDERED: CALCIUM CHLORIDE 1,000 MG/10 ML VIAL IV ONE (11:31)
[2018-02-26] MEDS ORDERED: AMINOCAPROIC ACID 5,000 MG/20 ML VIAL IV ONE (11:32)
[2018-02-26] MEDS ORDERED: ETOMIDATE 40 MG/20 ML VIAL IV ONE (11:32)
[2018-02-26] MEDS ORDERED: AMIODARONE 150 MG/3 ML VIAL ONE (11:32)
[2018-02-26] MEDS ORDERED: PROTAMINE SULFATE 50 MG/5 ML VIAL IV ONE ×2 (11:32→12:17)
[2018-02-26] MEDS ORDERED: SODIUM CHLORIDE 0.9% 200 ML IV ONE (11:32)
[2018-02-26] MEDS ORDERED: SODIUM CHLORIDE 0.9% 250 ML IV ONE (11:32)
[2018-02-26] MEDS ORDERED: HEPARIN/NACL 0.9% 2 UNITS/ML 500 ML IV ONE (11:32)
[2018-02-26] MEDS ORDERED: SODIUM CHLORIDE 0.9% 1,000 ML IV ONE (11:32)
[2018-02-26] MEDS: ALBUMIN 5% 12.5 GM in PREMIX 1 EACH IV PRN ×3 (11:45→20:40)
[2018-02-26 11:47] LABS: Basophils % 0.2 % (0.0-0.8); Eosinophils # 0.2 10*3/uL (0.0-0.87); Eosinophils % 1.3 % (0.00-10.9); Hematocrit 25.2 VOL% (35.7-47.0); Hemoglobin 8.1 GM/DL (12.0-16.0); Immature Granulocytes Absolute 0.13 #; Lymphocytes # 0.8 10*3/uL (1.4-4.0); Mean Corpuscular HGB Conc 32.1 GM/DL (32-36); Mean Corpuscular Hemoglobin 28 PG (27-34); Mean Corpuscular Volume 88.4 FL (87-102); Mean Platelet Volume 11.4 FL (9.6-12.0); Monocytes # 0.7 10*3/uL (0.11-0.8); Monocytes % 5.2 % (1.7-12.7); Neutrophils % 86.3 % (38.7-73.9); Platelet Count 230 T/CUMM (130-400); Red Blood Count 2.85 MC/CUMM (3.8-5.5); White Blood Count 12.8 T/CUMM (4-12)
[2018-02-26 11:47] LABS: ABG Base Excess -0.7 MMOL/L (-2.5-2.5); ABG HCO3 23.8 MMOL/L (20-26); ABG PCO2 31.2 MM HG (35-48); ABG PH 7.465 (7.35-7.45); ABG TCO2 20.8 MMOL/L (23-27); Glucose Heart Surgery 246 MG/DL (74-106); Hematocrit Heart Surgery 26.2 PERCENT (37-47); Hemoglobin Heart Surgery 8.4 G/DL (12.0-16.0); Potassium Heart/CVR 3.4 MMOL/L (3.5-5.1)
[2018-02-26] MEDS: POTASSIUM CHLORIDE RIDER 20 MEQ in PREMIX 1 EACH IV PRN ×6 (11:52→23:27)
[2018-02-26] MEDS: LACTATED RINGERS 1,000 ML IV PRN ×3 (11:53→13:53)
[2018-02-26 11:55] LABS: INR 1.2; PT Patient Result 12.9 SECS
[2018-02-26 12:09] LABS: Bilirubin,Total 1.3 MG/DL (0.2-1.0); Calcium 10.4 MG/DL (8.5-10.1); Osmolality,Calculated 288.5 MOS/KG (273-304); Potassium 3.5 MMOL/L (3.5-5.1); Total Protein 5.7 G/DL (6.4-8.3)
[2018-02-26 12:17] LABS: CKMB % 4.8 %
[2018-02-26 12:21] LABS: Troponin I 2.81 NG/ML (0.00-0.045)
[2018-02-26] MEDS ORDERED: FUROSEMIDE 40 MG/4 ML VIAL ONE (12:23)
[2018-02-26] MEDS ORDERED: FUROSEMIDE 40 MG/4 ML VIAL IV ONE (12:43)
[2018-02-26 13:02] LABS: ABG Base Excess -2.5 MMOL/L (-2.5-2.5); ABG HCO3 22.4 MMOL/L (20-26); ABG Oxygen Saturation 99.3 % (95-100); ABG PCO2 29.5 MM HG (35-48); ABG PH 7.454 (7.35-7.45); Glucose Heart Surgery 250 MG/DL (74-106); Potassium Heart/CVR 3.8 MMOL/L (3.5-5.1)
[2018-02-26] MEDS: CLINDAMYCIN INJ 300 MG in PREMIX 1 EACH IV SCH ×2 (13:07→18:41)
[2018-02-26] MEDS: INSULIN REGULAR DRIP 100 ML IV SCH ×2 (13:11→23:46)
[2018-02-26] MEDS: POTASSIUM CHLORIDE RIDER 10 MEQ in PREMIX 1 EACH IV PRN ×4 (14:35→20:10)
[2018-02-26 15:15] LABS: ABG Base Excess -1.1 MMOL/L (-2.5-2.5); ABG HCO3 23.5 MMOL/L (20-26); ABG Oxygen Saturation 99.2 % (95-100); ABG PH 7.449 (7.35-7.45); ABG TCO2 19.9 MMOL/L (23-27); Glucose Heart Surgery 228 MG/DL (74-106); Hematocrit Heart Surgery 32.8 PERCENT (37-47); Hemoglobin Heart Surgery 10.6 G/DL (12.0-16.0); Potassium Heart/CVR 3.7 MMOL/L (3.5-5.1)
[2018-02-26] MEDS: INSULIN REGULAR 100 UNIT/ML IV PRN ×2 (15:27→17:29)
[2018-02-26 17:24] LABS: ABG Base Excess -1.3 MMOL/L (-2.5-2.5); ABG HCO3 23.4 MMOL/L (20-26); ABG Oxygen Saturation 99.1 % (95-100); ABG PCO2 35.2 MM HG (35-48); ABG PH 7.418 (7.35-7.45); ABG TCO2 20.5 MMOL/L (23-27); Glucose Heart Surgery 172 MG/DL (74-106); Hematocrit Heart Surgery 33.1 PERCENT (37-47); Hemoglobin Heart Surgery 10.7 G/DL (12.0-16.0); Potassium Heart/CVR 3.9 MMOL/L (3.5-5.1)
[2018-02-26] MEDS: MORPHINE 4 MG/1 ML VIAL IV PRN ×2 (18:15→22:14)
[2018-02-26 19:17] LABS: ABG Base Excess -0.9 MMOL/L (-2.5-2.5); ABG HCO3 23.6 MMOL/L (20-26); ABG Oxygen Saturation 99.1 % (95-100); ABG PCO2 36.5 MM HG (35-48); ABG PH 7.412 (7.35-7.45); ABG TCO2 20.8 MMOL/L (23-27); Glucose Heart Surgery 121 MG/DL (74-106); Hematocrit Heart Surgery 34.9 PERCENT (37-47); Hemoglobin Heart Surgery 11.3 G/DL (12.0-16.0); Potassium Heart/CVR 3.9 MMOL/L (3.5-5.1)
[2018-02-26 19:47] LABS: CKMB % 3.8 %
[2018-02-26 19:51] LABS: Troponin I 3.13 NG/ML (0.00-0.045)
[2018-02-26] MEDS: METOPROLOL TARTRATE 25 MG TABLET PO SCH (22:03)
[2018-02-26 23:12] LABS: ABG Base Excess -1.7 MMOL/L (-2.5-2.5); ABG Oxygen Saturation 99.4 % (95-100); ABG PCO2 33.8 MM HG (35-48); ABG PH 7.423 (7.35-7.45); ABG TCO2 19.8 MMOL/L (23-27); Glucose Heart Surgery 177 MG/DL (74-106); Hematocrit Heart Surgery 33.6 PERCENT (37-47); Hemoglobin Heart Surgery 10.9 G/DL (12.0-16.0)
[2018-02-27] MEDS: MORPHINE 4 MG/1 ML VIAL IV PRN ×2 (00:24→21:53)
[2018-02-27] MEDS: ALBUMIN 5% 12.5 GM in PREMIX 1 EACH IV PRN ×3 (03:40→06:51)
[2018-02-27 04:37] LABS: ABG Base Excess -1.7 MMOL/L (-2.5-2.5); ABG PCO2 38.4 MM HG (35-48); ABG PH 7.386 (7.35-7.45); ABG TCO2 20.8 MMOL/L (23-27); Basophils % 0.1 % (0.0-0.8); Glucose Heart Surgery 124 MG/DL (74-106); Hematocrit 31.1 VOL% (35.7-47.0); Hematocrit Heart Surgery 32.5 PERCENT (37-47); Hemoglobin 10.4 GM/DL (12.0-16.0); Hemoglobin Heart Surgery 10.5 G/DL (12.0-16.0); Immature Granulocytes % 0.6 %; Immature Granulocytes Absolute 0.09 #; Lymphocytes # 0.8 10*3/uL (1.4-4.0); Lymphocytes % 4.8 % (21.3-54.2); Mean Corpuscular HGB Conc 33.4 GM/DL (32-36); Mean Corpuscular Hemoglobin 29 PG (27-34); Mean Corpuscular Volume 87.1 FL (87-102); Mean Platelet Volume 11.9 FL (9.6-12.0); Monocytes % 6.1 % (1.7-12.7); Neutrophils # 14.1 10*3/uL (1.4-7.4); Neutrophils % 88.4 % (38.7-73.9); Platelet Count 202 T/CUMM (130-400); Potassium Heart/CVR 3.9 MMOL/L (3.5-5.1); Red Blood Count 3.57 MC/CUMM (3.8-5.5); Red Cell Distribution Width 14.5 % (9.3-17.3); White Blood Count 15.9 T/CUMM (4-12)
[2018-02-27] MEDS: CLINDAMYCIN INJ 300 MG in PREMIX 1 EACH IV SCH ×3 (04:39→18:30)
[2018-02-27 04:58] LABS: Albumin 3.6 G/DL (3.4-5.0); Bilirubin,Direct 0.41 MG/DL (0.0-0.20); Bilirubin,Total 1.1 MG/DL (0.2-1.0); Calcium 10.4 MG/DL (8.5-10.1); Osmolality,Calculated 282.4 MOS/KG (273-304); Potassium 4.1 MMOL/L (3.5-5.1); Total Protein 6.3 G/DL (6.4-8.3)
[2018-02-27 04:59] LABS: Anisocytosis 1+; Band Neutrophils 16 % (0-10); Lymphocytes 7 % (20-55); Platelet Estimate Normal; Segmented Neutrophils 75 % (50-85); Total Cells Counted 100
[2018-02-27 05:01] LABS: Troponin I 2.71 NG/ML (0.00-0.045)
[2018-02-27] MEDS: POTASSIUM CHLORIDE RIDER 20 MEQ in PREMIX 1 EACH IV PRN ×2 (05:04→08:38)
[2018-02-27 05:43] LABS: ABG Base Excess -1.5 MMOL/L (-2.5-2.5); ABG HCO3 23.2 MMOL/L (20-26); ABG Oxygen Saturation 98.7 % (95-100); ABG PCO2 39.1 MM HG (35-48); ABG PH 7.384 (7.35-7.45); ABG TCO2 21.1 MMOL/L (23-27); Glucose Heart Surgery 113 MG/DL (74-106); Hematocrit Heart Surgery 32.8 PERCENT (37-47); Hemoglobin Heart Surgery 10.6 G/DL (12.0-16.0); Potassium Heart/CVR 4.4 MMOL/L (3.5-5.1)
[2018-02-27] MEDS: LACTATED RINGERS 1,000 ML IV PRN (07:47)
[2018-02-27] MEDS: METOPROLOL TARTRATE 25 MG TABLET PO SCH (08:38)
[2018-02-27] MEDS: CHLORHEXIDINE 0.12% ORAL RINSE 60 ML BOTTLE SWISH/SPIT SCH ×2 (08:39→20:05)
[2018-02-27] MEDS: INSULIN REGULAR 100 UNIT/ML SUBCUT SCH ×4 (08:40→20:05)
[2018-02-27 09:50] LABS: ABG Base Excess -3.8 MMOL/L (-2.5-2.5); ABG HCO3 21.3 MMOL/L (20-26); ABG Oxygen Saturation 98.8 % (95-100); ABG PCO2 40.1 MM HG (35-48); ABG PH 7.341 (7.35-7.45); ABG TCO2 19.7 MMOL/L (23-27); Glucose Heart Surgery 154 MG/DL (74-106); Hemoglobin Heart Surgery 10.7 G/DL (12.0-16.0); Potassium Heart/CVR 5.2 MMOL/L (3.5-5.1)
[2018-02-27] MEDS ORDERED: CARVEDILOL 3.125 MG TABLET PO SCH (10:00)
[2018-02-27] MEDS: CARVEDILOL 3.125 MG TABLET PO SCH ×2 (11:55→18:30)
[2018-02-27] MEDS: SODIUM CHLORIDE 0.45% 1,000 ML IV SCH ×2 (12:00)
[2018-02-27] MEDS: INSULIN REGULAR DRIP 100 ML IV SCH (12:01)
[2018-02-27] MEDS ORDERED: FUROSEMIDE 40 MG/4 ML VIAL IV ONE ×2 (18:00)
[2018-02-27] MEDS: ROSUVASTATIN 10 MG TABLET PO SCH (20:05)
[2018-02-28] MEDS: dilTIAZem Drip 125 MG/125 ML PREMIX IV PRN (00:15)
[2018-02-28] MEDS: CARVEDILOL 3.125 MG TABLET PO SCH ×3 (00:15→09:15)
[2018-02-28] MEDS: INSULIN REGULAR 100 UNIT/ML SUBCUT SCH ×7 (00:23→23:05)
[2018-02-28] MEDS ORDERED: HEPARIN/NACL 0.9% 2 UNITS/ML 500 ML IV ONE (03:02)
[2018-02-28] MEDS: CLINDAMYCIN INJ 300 MG in PREMIX 1 EACH IV SCH ×3 (03:33→18:30)
[2018-02-28 04:04] LABS: Basophils % 0.1 % (0.0-0.8); Hematocrit 31.7 VOL% (35.7-47.0); Hemoglobin 10.1 GM/DL (12.0-16.0); Immature Granulocytes % 0.6 %; Immature Granulocytes Absolute 0.09 #; Lymphocytes # 1.7 10*3/uL (1.4-4.0); Lymphocytes % 10.7 % (21.3-54.2); Mean Corpuscular HGB Conc 31.9 GM/DL (32-36); Mean Corpuscular Hemoglobin 29 PG (27-34); Mean Corpuscular Volume 90.1 FL (87-102); Monocytes # 1.3 10*3/uL (0.11-0.8); Monocytes % 8.2 % (1.7-12.7); Neutrophils # 12.7 10*3/uL (1.4-7.4); Neutrophils % 80.4 % (38.7-73.9); Platelet Count 176 T/CUMM (130-400); Red Blood Count 3.52 MC/CUMM (3.8-5.5); Red Cell Distribution Width 14.9 % (9.3-17.3); White Blood Count 15.7 T/CUMM (4-12)
[2018-02-28 04:05] LABS: Albumin 3.4 G/DL (3.4-5.0); Bilirubin,Direct 0.23 MG/DL (0.0-0.20); Bilirubin,Total 0.6 MG/DL (0.2-1.0); Calcium 10.6 MG/DL (8.5-10.1); Osmolality,Calculated 282.7 MOS/KG (273-304); Potassium 4.6 MMOL/L (3.5-5.1); Total Protein 6.4 G/DL (6.4-8.3)
[2018-02-28] MEDS: MAGNESIUM SULF RIDER 2 GM in PREMIX 1 EACH IV PRN (06:23)
[2018-02-28] MEDS: SODIUM CHLORIDE 0.45% 1,000 ML IV SCH ×2 (06:29→17:41)
[2018-02-28] MEDS ORDERED: FUROSEMIDE 40 MG/4 ML VIAL IV ONE ×2 (08:51→16:00)
[2018-02-28] MEDS: CHLORHEXIDINE 0.12% ORAL RINSE 60 ML BOTTLE SWISH/SPIT SCH ×2 (09:34→20:48)
[2018-02-28 09:45] LABS: ABG Base Excess -2.2 MMOL/L (-2.5-2.5); ABG HCO3 22.5 MMOL/L (20-26); ABG Oxygen Saturation 97.7 % (95-100); ABG PCO2 39.5 MM HG (35-48); ABG PO2 97.9 MM HG (80-95); ABG TCO2 20.5 MMOL/L (23-27)
[2018-02-28] MEDS: CARVEDILOL 6.25 MG TABLET PO SCH ×3 (12:09→23:06)
[2018-02-28] MEDS: ROSUVASTATIN 10 MG TABLET PO SCH (20:48)
[2018-02-28] MEDS: MORPHINE 4 MG/1 ML VIAL IV PRN (20:51)
[2018-03-01] MEDS: MORPHINE 4 MG/1 ML VIAL IV PRN ×2 (01:54→18:14)
[2018-03-01] MEDS: CLINDAMYCIN INJ 300 MG in PREMIX 1 EACH IV SCH (03:28)
[2018-03-01 03:45] LABS: Basophils % 0.1 % (0.0-0.8); Eosinophils # 0.1 10*3/uL (0.0-0.87); Eosinophils % 0.7 % (0.00-10.9); Hematocrit 29.4 VOL% (35.7-47.0); Hemoglobin 9.5 GM/DL (12.0-16.0); Immature Granulocytes % 0.5 %; Immature Granulocytes Absolute 0.07 #; Lymphocytes # 1.7 10*3/uL (1.4-4.0); Lymphocytes % 12.4 % (21.3-54.2); Mean Corpuscular HGB Conc 32.3 GM/DL (32-36); Mean Corpuscular Hemoglobin 29 PG (27-34); Mean Corpuscular Volume 88.8 FL (87-102); Mean Platelet Volume 11.9 FL (9.6-12.0); Monocytes # 1.5 10*3/uL (0.11-0.8); Monocytes % 11.1 % (1.7-12.7); Neutrophils # 10.3 10*3/uL (1.4-7.4); Neutrophils % 75.2 % (38.7-73.9); Platelet Count 143 T/CUMM (130-400); Red Blood Count 3.31 MC/CUMM (3.8-5.5); Red Cell Distribution Width 14.4 % (9.3-17.3); White Blood Count 13.7 T/CUMM (4-12)
[2018-03-01] MEDS: INSULIN REGULAR 100 UNIT/ML SUBCUT SCH ×5 (03:49→20:33)
[2018-03-01 04:10] LABS: Albumin 2.9 G/DL (3.4-5.0); Bilirubin,Direct 0.25 MG/DL (0.0-0.20); Bilirubin,Total 0.8 MG/DL (0.2-1.0); Calcium 10.2 MG/DL (8.5-10.1); Osmolality,Calculated 279.8 MOS/KG (273-304); Potassium 3.4 MMOL/L (3.5-5.1)
[2018-03-01] MEDS: MAGNESIUM SULF RIDER 2 GM in PREMIX 1 EACH IV PRN (04:55)
[2018-03-01] MEDS: POTASSIUM CHLORIDE RIDER 20 MEQ in PREMIX 1 EACH IV PRN ×2 (04:55→07:36)
[2018-03-01] MEDS: CARVEDILOL 6.25 MG TABLET PO SCH ×3 (05:09→18:07)
[2018-03-01] MEDS: CHLORHEXIDINE 0.12% ORAL RINSE 60 ML BOTTLE SWISH/SPIT SCH ×2 (12:33→20:33)
[2018-03-01] MEDS: TROLAMINE SALICYLATE 10% CREAM 85 GM TUBE TOP PRN (13:11)
[2018-03-01] MEDS: SODIUM CHLORIDE 0.45% 1,000 ML IV SCH (17:24)
[2018-03-01] MEDS: CAPTOPRIL 6.25 MG TABLET PO SCH (18:07)
[2018-03-01] MEDS: ROSUVASTATIN 10 MG TABLET PO SCH (20:33)
[2018-03-01] MEDS: dilTIAZem Drip 125 MG/125 ML PREMIX IV PRN (21:08)
[2018-03-02] MEDS: INSULIN REGULAR 100 UNIT/ML SUBCUT SCH ×6 (00:04→20:51)
[2018-03-02] MEDS: CARVEDILOL 6.25 MG TABLET PO SCH ×5 (00:04→23:35)
[2018-03-02] MEDS: TROLAMINE SALICYLATE 10% CREAM 85 GM TUBE TOP PRN ×2 (04:01→08:00)
[2018-03-02] MEDS: MORPHINE 4 MG/1 ML VIAL IV PRN (05:10)
[2018-03-02 07:14] LABS: Basophils % 0.2 % (0.0-0.8); Eosinophils # 0.4 10*3/uL (0.0-0.87); Eosinophils % 3.4 % (0.00-10.9); Hematocrit 29.6 VOL% (35.7-47.0); Hemoglobin 9.2 GM/DL (12.0-16.0); Immature Granulocytes % 0.4 %; Immature Granulocytes Absolute 0.05 #; Lymphocytes # 1.5 10*3/uL (1.4-4.0); Lymphocytes % 13.5 % (21.3-54.2); Mean Corpuscular HGB Conc 31.1 GM/DL (32-36); Mean Corpuscular Hemoglobin 28 PG (27-34); Mean Corpuscular Volume 91.4 FL (87-102); Mean Platelet Volume 11.8 FL (9.6-12.0); Monocytes # 1.4 10*3/uL (0.11-0.8); Monocytes % 12.6 % (1.7-12.7); Neutrophils # 7.9 10*3/uL (1.4-7.4); Neutrophils % 69.9 % (38.7-73.9); Platelet Count 131 T/CUMM (130-400); Red Blood Count 3.24 MC/CUMM (3.8-5.5); White Blood Count 11.3 T/CUMM (4-12)
[2018-03-02 07:45] LABS: Calcium 10.3 MG/DL (8.5-10.1); Osmolality,Calculated 272.2 MOS/KG (273-304); Potassium 3.9 MMOL/L (3.5-5.1)
[2018-03-02] MEDS: CHLORHEXIDINE 0.12% ORAL RINSE 60 ML BOTTLE SWISH/SPIT SCH ×2 (09:50→20:51)
[2018-03-02] MEDS: CAPTOPRIL 6.25 MG TABLET PO SCH ×2 (09:50→20:47)
[2018-03-02] MEDS ORDERED: ACETAMINOPHEN 325 MG TABLET PO PRN (11:03)
[2018-03-02] MEDS: FUROSEMIDE 40 MG TABLET PO SCH (12:27)
[2018-03-02] MEDS: ALBUTEROL/IPRATROPIUM 3 ML NEB RESP TX SCH ×2 (13:55→19:20)
[2018-03-02] MEDS: ROSUVASTATIN 10 MG TABLET PO SCH (20:48)
[2018-03-03] MEDS: ALBUTEROL/IPRATROPIUM 3 ML NEB RESP TX SCH ×4 (00:29→20:26)
[2018-03-03] MEDS: SODIUM CHLORIDE 0.45% 1,000 ML IV SCH (00:46)
[2018-03-03] MEDS: MORPHINE 4 MG/1 ML VIAL IV PRN (01:54)
[2018-03-03 03:55] LABS: Basophils % 0.2 % (0.0-0.8); Eosinophils # 0.5 10*3/uL (0.0-0.87); Eosinophils % 4.6 % (0.00-10.9); Hematocrit 29.4 VOL% (35.7-47.0); Hemoglobin 9.3 GM/DL (12.0-16.0); Immature Granulocytes % 0.6 %; Immature Granulocytes Absolute 0.06 #; Lymphocytes # 1.2 10*3/uL (1.4-4.0); Lymphocytes % 12.1 % (21.3-54.2); Mean Corpuscular HGB Conc 31.6 GM/DL (32-36); Mean Corpuscular Hemoglobin 29 PG (27-34); Mean Corpuscular Volume 90.5 FL (87-102); Mean Platelet Volume 11.7 FL (9.6-12.0); Monocytes # 1.4 10*3/uL (0.11-0.8); Monocytes % 14.5 % (1.7-12.7); Neutrophils # 6.7 10*3/uL (1.4-7.4); Platelet Count 144 T/CUMM (130-400); Red Blood Count 3.25 MC/CUMM (3.8-5.5); White Blood Count 9.8 T/CUMM (4-12)
[2018-03-03 04:08] LABS: Calcium 10.1 MG/DL (8.5-10.1); Osmolality,Calculated 278.7 MOS/KG (273-304); Potassium 3.9 MMOL/L (3.5-5.1)
[2018-03-03] MEDS: CARVEDILOL 6.25 MG TABLET PO SCH (05:43)
[2018-03-03] MEDS: INSULIN REGULAR 100 UNIT/ML SUBCUT SCH ×4 (07:40→21:02)
[2018-03-03] MEDS: FUROSEMIDE 40 MG TABLET PO SCH (08:48)
[2018-03-03] MEDS: CAPTOPRIL 6.25 MG TABLET PO SCH ×2 (08:49→21:01)
[2018-03-03] MEDS: CHLORHEXIDINE 0.12% ORAL RINSE 60 ML BOTTLE SWISH/SPIT SCH ×2 (08:50→21:02)
[2018-03-03] MEDS ORDERED: INFLUENZA VIRUS VACCINE 0.5 ML SYRINGE IM ONE (12:05)
[2018-03-03] MEDS ORDERED: DEXTROSE 50% 25 GM/50 ML SYRINGE IV PRN (19:49)
[2018-03-03] MEDS ORDERED: GLUCAGON 1 MG VIAL IM PRN ×2 (19:49)
[2018-03-03] MEDS ORDERED: ALUMINUM/MAGNES/SIMETH MAX STR 30 ML UDCUP PO PRN (19:49)
[2018-03-03] MEDS ORDERED: SODIUM CHLOR 0.45% KCL 20 MEQ 20 MEQ/1,000 ML BAG IV SCH (19:49)
[2018-03-03] MEDS ORDERED: DEXTROSE 50% 25 GM/50 ML VIAL IV PRN (19:49)
[2018-03-03] MEDS ORDERED: ONDANSETRON 4 MG/2 ML VIAL IV PRN (19:49)
[2018-03-03] MEDS ORDERED: MAGNESIUM SULF RIDER 2 GM in PREMIX 1 EACH IV PRN (19:49)
[2018-03-03] MEDS ORDERED: MAGNESIUM SULF RIDER 4 GM in PREMIX 1 EACH IV PRN (19:49)
[2018-03-03] MEDS: ROSUVASTATIN 10 MG TABLET PO SCH (20:58)
[2018-03-03] MEDS: TEMAZEPAM 15 MG CAPSULE PO PRN (20:59)
[2018-03-03] MEDS: oxyCODONE/ACETAMINOPHEN 5-325 MG TABLET PO PRN (21:00)
[2018-03-03] MEDS: PANTOPRAZOLE 40 MG TABLET PO SCH (21:00)
[2018-03-03] MEDS: CARVEDILOL 25 MG TABLET PO SCH (21:01)
[2018-03-03] MEDS: WARFARIN 5 MG TABLET PO SCH (21:01)
[2018-03-03] MEDS: ASPIRIN EC 325 MG TABLET PO SCH (21:01)
[2018-03-03] MEDS: DOCUSATE SODIUM 100 MG CAPSULE PO SCH (21:01)
[2018-03-03] MEDS: FERROUS SULFATE 325 MG TABLET PO SCH (21:01)
[2018-03-04] MEDS: ALBUTEROL/IPRATROPIUM 3 ML NEB RESP TX SCH ×4 (01:22→19:10)
[2018-03-04 04:56] LABS: Basophils % 0.5 % (0.0-0.8); Eosinophils # 0.7 10*3/uL (0.0-0.87); Eosinophils % 8.9 % (0.00-10.9); Hematocrit 28.3 VOL% (35.7-47.0); Hemoglobin 8.9 GM/DL (12.0-16.0); Immature Granulocytes % 0.6 %; Immature Granulocytes Absolute 0.05 #; Lymphocytes # 1.7 10*3/uL (1.4-4.0); Lymphocytes % 20.7 % (21.3-54.2); Mean Corpuscular HGB Conc 31.4 GM/DL (32-36); Mean Corpuscular Hemoglobin 29 PG (27-34); Mean Corpuscular Volume 91.3 FL (87-102); Mean Platelet Volume 12.2 FL (9.6-12.0); Monocytes # 1.2 10*3/uL (0.11-0.8); Monocytes % 14.7 % (1.7-12.7); Neutrophils # 4.5 10*3/uL (1.4-7.4); Neutrophils % 54.6 % (38.7-73.9); Platelet Count 156 T/CUMM (130-400); White Blood Count 8.3 T/CUMM (4-12)
[2018-03-04 05:31] LABS: Alanine Aminotransferase 37 U/L (13-56); Albumin 2.5 G/DL (3.4-5.0); Alkaline Phosphatase 83 U/L (45-117); Aspartate Amino Transferase 31 U/L (0-37); Bilirubin,Indirect 0.6 MG/DL (0.0-1.0); Blood Urea Nitrogen 30 MG/DL (7-18); Glucose 80 MG/DL (74-106); Osmolality,Calculated 279.7 MOS/KG (273-304); Sodium 138 MMOL/L (136-145); Total Protein 5.7 G/DL (6.4-8.3)
[2018-03-04 05:35] LABS: Troponin I 0.117 NG/ML (0.00-0.045)
[2018-03-04] MEDS ORDERED: FUROSEMIDE 40 MG/4 ML VIAL IV ONE ×2 (06:00→22:06)
[2018-03-04] MEDS: INSULIN REGULAR 100 UNIT/ML SUBCUT SCH ×4 (07:33→21:34)
[2018-03-04] MEDS: DOCUSATE SODIUM 100 MG CAPSULE PO SCH (08:35)
[2018-03-04] MEDS: CARVEDILOL 25 MG TABLET PO SCH ×2 (08:35→21:33)
[2018-03-04] MEDS: FUROSEMIDE 40 MG TABLET PO SCH ×2 (08:35→16:08)
[2018-03-04] MEDS: ASPIRIN EC 325 MG TABLET PO SCH (08:35)
[2018-03-04] MEDS: FERROUS SULFATE 325 MG TABLET PO SCH (08:35)
[2018-03-04] MEDS: CHLORHEXIDINE 0.12% ORAL RINSE 60 ML BOTTLE SWISH/SPIT SCH ×2 (08:36→21:38)
[2018-03-04] MEDS: PANTOPRAZOLE 40 MG TABLET PO SCH (08:36)
[2018-03-04] MEDS: CAPTOPRIL 6.25 MG TABLET PO SCH ×2 (08:46→21:32)
[2018-03-04] MEDS: WARFARIN 5 MG TABLET PO SCH (18:06)
[2018-03-04] MEDS: oxyCODONE/ACETAMINOPHEN 5-325 MG TABLET PO PRN (21:32)
[2018-03-04] MEDS: ROSUVASTATIN 10 MG TABLET PO SCH (21:33)
[2018-03-04] MEDS: TEMAZEPAM 15 MG CAPSULE PO PRN (21:33)
[2018-03-05] MEDS: ALBUTEROL/IPRATROPIUM 3 ML NEB RESP TX PRN ×2 (04:08→09:10)
[2018-03-05 04:53] LABS: Basophils % 0.3 % (0.0-0.8); Eosinophils # 1.1 10*3/uL (0.0-0.87); Eosinophils % 9.2 % (0.00-10.9); Hematocrit 30.1 VOL% (35.7-47.0); Hemoglobin 9.5 GM/DL (12.0-16.0); Immature Granulocytes % 0.6 %; Immature Granulocytes Absolute 0.07 #; Lymphocytes # 1.1 10*3/uL (1.4-4.0); Lymphocytes % 9.7 % (21.3-54.2); Mean Corpuscular HGB Conc 31.6 GM/DL (32-36); Mean Corpuscular Hemoglobin 29 PG (27-34); Mean Corpuscular Volume 91.2 FL (87-102); Mean Platelet Volume 11.8 FL (9.6-12.0); Monocytes # 1.4 10*3/uL (0.11-0.8); Monocytes % 12.4 % (1.7-12.7); Neutrophils # 7.8 10*3/uL (1.4-7.4); Neutrophils % 67.8 % (38.7-73.9); Platelet Count 168 T/CUMM (130-400); Red Cell Distribution Width 13.9 % (9.3-17.3); White Blood Count 11.5 T/CUMM (4-12)
[2018-03-05 05:01] LABS: INR 1.1; PT Patient Result 12.1 SECS
[2018-03-05 05:10] LABS: Alanine Aminotransferase 36 U/L (13-56); Albumin 2.8 G/DL (3.4-5.0); Alkaline Phosphatase 95 U/L (45-117); Aspartate Amino Transferase 20 U/L (0-37); Bilirubin,Indirect 0.7 MG/DL (0.0-1.0); Blood Urea Nitrogen 29 MG/DL (7-18); Glucose 98 MG/DL (74-106); Osmolality,Calculated 278.8 MOS/KG (273-304); Potassium 3.3 MMOL/L (3.5-5.1); Sodium 137 MMOL/L (136-145); Total Protein 6.3 G/DL (6.4-8.3)
[2018-03-05 05:11] LABS: Troponin I 0.075 NG/ML (0.00-0.045)
[2018-03-05] MEDS: POTASSIUM CHLORIDE 20 MEQ TABLET PO PRN ×3 (06:34→11:35)
[2018-03-05] MEDS: INSULIN REGULAR 100 UNIT/ML SUBCUT SCH ×4 (08:16→21:31)
[2018-03-05] MEDS: CAPTOPRIL 6.25 MG TABLET PO SCH ×2 (09:36→21:31)
[2018-03-05] MEDS: FUROSEMIDE 40 MG TABLET PO SCH ×2 (09:36→17:32)
[2018-03-05] MEDS: CARVEDILOL 25 MG TABLET PO SCH ×2 (09:37→21:31)
[2018-03-05] MEDS: PANTOPRAZOLE 40 MG TABLET PO SCH (09:37)
[2018-03-05] MEDS: CHLORHEXIDINE 0.12% ORAL RINSE 60 ML BOTTLE SWISH/SPIT SCH ×2 (09:37→21:32)
[2018-03-05] MEDS: ASPIRIN EC 325 MG TABLET PO SCH (09:37)
[2018-03-05] MEDS: FERROUS SULFATE 325 MG TABLET PO SCH (09:37)
[2018-03-05] MEDS: DOCUSATE SODIUM 100 MG CAPSULE PO SCH (09:37)
[2018-03-05] MEDS: WARFARIN 5 MG TABLET PO SCH (17:32)
[2018-03-05] MEDS: TEMAZEPAM 15 MG CAPSULE PO PRN (21:31)
[2018-03-05] MEDS: ROSUVASTATIN 10 MG TABLET PO SCH (21:31)
[2018-03-05] MEDS: oxyCODONE/ACETAMINOPHEN 5-325 MG TABLET PO PRN (21:31)
[2018-03-06] MEDS: ALBUTEROL/IPRATROPIUM 3 ML NEB RESP TX PRN (01:04)
[2018-03-06 03:40] LABS: INR 1.3; PT Patient Result 14.6 SECS
[2018-03-06] MEDS ORDERED: FUROSEMIDE 40 MG/4 ML VIAL IV ONE ×2 (08:26→19:16)
[2018-03-06] MEDS ORDERED: FUROSEMIDE 40 MG/4 ML VIAL ONE (08:29)
[2018-03-06] MEDS: FERROUS SULFATE 325 MG TABLET PO SCH (08:30)
[2018-03-06] MEDS: CAPTOPRIL 6.25 MG TABLET PO SCH (08:30)
[2018-03-06] MEDS: INSULIN REGULAR 100 UNIT/ML SUBCUT SCH ×4 (08:30→20:21)
[2018-03-06] MEDS: DOCUSATE SODIUM 100 MG CAPSULE PO SCH (08:30)
[2018-03-06] MEDS: CARVEDILOL 25 MG TABLET PO SCH (08:30)
[2018-03-06] MEDS: PANTOPRAZOLE 40 MG TABLET PO SCH (08:30)
[2018-03-06] MEDS: ASPIRIN EC 325 MG TABLET PO SCH (08:30)
[2018-03-06] MEDS: MAGNESIUM HYDROXIDE SUSP 30 ML UDCUP PO PRN (08:31)
[2018-03-06] MEDS: FUROSEMIDE 40 MG TABLET PO SCH (08:31)
[2018-03-06] MEDS: CHLORHEXIDINE 0.12% ORAL RINSE 60 ML BOTTLE SWISH/SPIT SCH ×2 (08:31→20:22)
[2018-03-06] MEDS: ALBUTEROL/IPRATROPIUM 3 ML NEB RESP TX SCH ×2 (14:00→19:16)
[2018-03-06] MEDS ORDERED: FUROSEMIDE 40 MG/4 ML VIAL IV SCH (16:00)
[2018-03-06] MEDS: WARFARIN 5 MG TABLET PO SCH (16:59)
[2018-03-06 18:43] LABS: ABG HCO3 32.7 MMOL/L (20-26); ABG Oxygen Saturation 97.1 % (95-100); ABG PCO2 53.4 MM HG (35-48); ABG PH 7.425 (7.35-7.45); ABG PO2 84.6 MM HG (80-95); ABG TCO2 31.7 MMOL/L (23-27)
[2018-03-06] MEDS: DOBUTamine 500 MG/250 ML PREMIX IV SCH (19:52)
[2018-03-06] MEDS: FUROSEMIDE INJ 100 MG in SODIUM CHLORIDE 0.9% 90 ML IV SCH (20:13)
[2018-03-06] MEDS: ROSUVASTATIN 10 MG TABLET PO SCH (20:22)
[2018-03-07] MEDS: ALBUTEROL/IPRATROPIUM 3 ML NEB RESP TX SCH ×4 (00:39→19:49)
[2018-03-07 02:50] LABS: ABG Base Excess 12.3 MMOL/L (-2.5-2.5); ABG HCO3 36.1 MMOL/L (20-26); ABG Oxygen Saturation 96.5 % (95-100); ABG TCO2 34.5 MMOL/L (23-27); Pt O2 Delivery Device Other
[2018-03-07 03:55] LABS: Basophils % 0.5 % (0.0-0.8); Eosinophils # 0.7 10*3/uL (0.0-0.87); Eosinophils % 7.6 % (0.00-10.9); Hematocrit 31.7 VOL% (35.7-47.0); Immature Granulocytes % 0.3 %; Immature Granulocytes Absolute 0.03 #; Lymphocytes # 1.4 10*3/uL (1.4-4.0); Lymphocytes % 15.8 % (21.3-54.2); Mean Corpuscular HGB Conc 31.5 GM/DL (32-36); Mean Corpuscular Hemoglobin 28 PG (27-34); Mean Corpuscular Volume 89.5 FL (87-102); Mean Platelet Volume 11.9 FL (9.6-12.0); Monocytes # 1.1 10*3/uL (0.11-0.8); Monocytes % 12.1 % (1.7-12.7); Neutrophils # 5.6 10*3/uL (1.4-7.4); Neutrophils % 63.7 % (38.7-73.9); Platelet Count 219 T/CUMM (130-400); Red Blood Count 3.54 MC/CUMM (3.8-5.5); Red Cell Distribution Width 13.5 % (9.3-17.3); White Blood Count 8.8 T/CUMM (4-12)
[2018-03-07 04:02] LABS: INR 1.7; PT Patient Result 17.9 SECS
[2018-03-07 04:19] LABS: Alanine Aminotransferase 25 U/L (13-56); Alkaline Phosphatase 99 U/L (45-117); Aspartate Amino Transferase 13 U/L (0-37); Bilirubin,Indirect 0.6 MG/DL (0.0-1.0); Blood Urea Nitrogen 26 MG/DL (7-18); Calcium 11.1 MG/DL (8.5-10.1); Glucose 125 MG/DL (74-106); Osmolality,Calculated 278.8 MOS/KG (273-304); Potassium 3.4 MMOL/L (3.5-5.1); Sodium 137 MMOL/L (136-145); Total Protein 6.6 G/DL (6.4-8.3)
[2018-03-07 04:21] LABS: Troponin I 0.049 NG/ML (0.00-0.045)
[2018-03-07] MEDS: FUROSEMIDE INJ 100 MG in SODIUM CHLORIDE 0.9% 90 ML IV SCH ×2 (05:30→18:15)
[2018-03-07] MEDS: POTASSIUM CHLORIDE 20 MEQ TABLET PO PRN ×2 (05:42→06:34)
[2018-03-07] MEDS: INSULIN REGULAR 100 UNIT/ML SUBCUT SCH ×4 (08:05→20:31)
[2018-03-07] MEDS: DOCUSATE SODIUM 100 MG CAPSULE PO SCH (09:10)
[2018-03-07] MEDS: FERROUS SULFATE 325 MG TABLET PO SCH (09:10)
[2018-03-07] MEDS: ASPIRIN EC 325 MG TABLET PO SCH (09:10)
[2018-03-07] MEDS: PANTOPRAZOLE 40 MG TABLET PO SCH (09:10)
[2018-03-07] MEDS: CHLORHEXIDINE 0.12% ORAL RINSE 60 ML BOTTLE SWISH/SPIT SCH ×2 (09:10→20:42)
[2018-03-07] MEDS: WARFARIN 5 MG TABLET PO SCH (17:50)
[2018-03-07] MEDS: ZALEPLON 5 MG CAPSULE PO PRN (20:30)
[2018-03-07] MEDS: oxyCODONE/ACETAMINOPHEN 5-325 MG TABLET PO PRN (20:30)
[2018-03-07] MEDS: ROSUVASTATIN 10 MG TABLET PO SCH (20:31)
[2018-03-08] MEDS: ALBUTEROL/IPRATROPIUM 3 ML NEB RESP TX SCH ×4 (00:27→19:09)
[2018-03-08 02:59] LABS: Allen Test Positive; Pt O2 Delivery Device Other
[2018-03-08 03:00] LABS: ABG Base Excess 12.5 MMOL/L (-2.5-2.5); ABG HCO3 36.3 MMOL/L (20-26); ABG Oxygen Saturation 98.9 % (95-100); ABG PCO2 51.6 MM HG (35-48); ABG PH 7.477 (7.35-7.45); ABG TCO2 34.3 MMOL/L (23-27)
[2018-03-08 04:46] LABS: Basophils # 0.1 10*3/uL (0.0-0.2); Basophils % 0.7 % (0.0-0.8); Eosinophils # 0.6 10*3/uL (0.0-0.87); Eosinophils % 9.1 % (0.00-10.9); Hematocrit 30.9 VOL% (35.7-47.0); Hemoglobin 9.7 GM/DL (12.0-16.0); Immature Granulocytes % 0.9 %; Immature Granulocytes Absolute 0.06 #; Lymphocytes # 1.7 10*3/uL (1.4-4.0); Lymphocytes % 24.4 % (21.3-54.2); Mean Corpuscular HGB Conc 31.4 GM/DL (32-36); Mean Corpuscular Hemoglobin 28 PG (27-34); Mean Platelet Volume 11.8 FL (9.6-12.0); Monocytes # 0.9 10*3/uL (0.11-0.8); Monocytes % 12.1 % (1.7-12.7); Neutrophils # 3.7 10*3/uL (1.4-7.4); Neutrophils % 52.8 % (38.7-73.9); Platelet Count 217 T/CUMM (130-400); Red Blood Count 3.47 MC/CUMM (3.8-5.5); Red Cell Distribution Width 13.7 % (9.3-17.3)
[2018-03-08 05:14] LABS: Alanine Aminotransferase 23 U/L (13-56); Albumin 2.8 G/DL (3.4-5.0); Alkaline Phosphatase 102 U/L (45-117); Aspartate Amino Transferase 16 U/L (0-37); Bilirubin,Indirect 0.3 MG/DL (0.0-1.0); Blood Urea Nitrogen 25 MG/DL (7-18); Calcium 10.6 MG/DL (8.5-10.1); Glucose 101 MG/DL (74-106); Osmolality,Calculated 273.1 MOS/KG (273-304); Potassium 3.1 MMOL/L (3.5-5.1); Sodium 135 MMOL/L (136-145); Total Protein 6.3 G/DL (6.4-8.3)
[2018-03-08 05:40] LABS: Troponin I 0.048 NG/ML (0.00-0.045)
[2018-03-08] MEDS: FUROSEMIDE INJ 100 MG in SODIUM CHLORIDE 0.9% 90 ML IV SCH ×2 (06:23→14:05)
[2018-03-08] MEDS: POTASSIUM CHLORIDE 20 MEQ TABLET PO PRN (06:33)
[2018-03-08] MEDS: ASPIRIN EC 325 MG TABLET PO SCH (09:00)
[2018-03-08] MEDS: PANTOPRAZOLE 40 MG TABLET PO SCH (09:00)
[2018-03-08] MEDS: DOCUSATE SODIUM 100 MG CAPSULE PO SCH (09:00)
[2018-03-08] MEDS: FERROUS SULFATE 325 MG TABLET PO SCH (09:01)
[2018-03-08] MEDS: INSULIN REGULAR 100 UNIT/ML SUBCUT SCH ×4 (09:01→21:05)
[2018-03-08] MEDS: CHLORHEXIDINE 0.12% ORAL RINSE 60 ML BOTTLE SWISH/SPIT SCH ×2 (09:01→21:05)
[2018-03-08] MEDS: oxyCODONE/ACETAMINOPHEN 5-325 MG TABLET PO PRN ×2 (10:40→17:35)
[2018-03-08] MEDS: WARFARIN 5 MG TABLET PO SCH (17:30)
[2018-03-08] MEDS ORDERED: POTASSIUM CHLORIDE RIDER 10 MEQ in PREMIX 1 EACH IV PRN (20:07)
[2018-03-08] MEDS: DOBUTamine 500 MG/250 ML PREMIX IV SCH ×2 (20:48)
[2018-03-08] MEDS: ROSUVASTATIN 10 MG TABLET PO SCH (21:05)
[2018-03-09] MEDS: ALBUTEROL/IPRATROPIUM 3 ML NEB RESP TX SCH ×4 (01:24→20:15)
[2018-03-09] MEDS: FUROSEMIDE INJ 100 MG in SODIUM CHLORIDE 0.9% 90 ML IV SCH ×2 (02:17→20:33)
[2018-03-09 04:00] LABS: Basophils # 0.1 10*3/uL (0.0-0.2); Basophils % 0.7 % (0.0-0.8); Eosinophils # 0.7 10*3/uL (0.0-0.87); Eosinophils % 8.2 % (0.00-10.9); Hematocrit 32.2 VOL% (35.7-47.0); Hemoglobin 10.1 GM/DL (12.0-16.0); Immature Granulocytes % 0.4 %; Immature Granulocytes Absolute 0.03 #; Lymphocytes # 1.8 10*3/uL (1.4-4.0); Lymphocytes % 21.1 % (21.3-54.2); Mean Corpuscular HGB Conc 31.4 GM/DL (32-36); Mean Corpuscular Hemoglobin 28 PG (27-34); Mean Corpuscular Volume 89.2 FL (87-102); Mean Platelet Volume 12.5 FL (9.6-12.0); Neutrophils # 4.9 10*3/uL (1.4-7.4); Neutrophils % 57.6 % (38.7-73.9); Platelet Count 235 T/CUMM (130-400); Red Blood Count 3.61 MC/CUMM (3.8-5.5); Red Cell Distribution Width 13.6 % (9.3-17.3); White Blood Count 8.5 T/CUMM (4-12)
[2018-03-09 04:28] LABS: Potassium 3.2 MMOL/L (3.5-5.1)
[2018-03-09] MEDS: POTASSIUM CHLORIDE RIDER 20 MEQ in PREMIX 1 EACH IV PRN ×2 (05:35→06:36)
[2018-03-09] MEDS: DOBUTamine 500 MG/250 ML PREMIX IV SCH ×2 (05:35→20:17)
[2018-03-09] MEDS: INSULIN REGULAR 100 UNIT/ML SUBCUT SCH ×4 (09:37→20:30)
[2018-03-09] MEDS: PANTOPRAZOLE 40 MG TABLET PO SCH (09:43)
[2018-03-09] MEDS: DOCUSATE SODIUM 100 MG CAPSULE PO SCH (09:44)
[2018-03-09] MEDS: ASPIRIN EC 325 MG TABLET PO SCH (09:44)
[2018-03-09] MEDS: FERROUS SULFATE 325 MG TABLET PO SCH (09:44)
[2018-03-09] MEDS: CHLORHEXIDINE 0.12% ORAL RINSE 60 ML BOTTLE SWISH/SPIT SCH ×2 (09:46→20:31)
[2018-03-09 12:24] LABS: INR 2.7
[2018-03-09 12:26] LABS: PT Patient Result 28.9 SECS
[2018-03-09] MEDS: WARFARIN 2.5 MG TABLET PO SCH (18:02)
[2018-03-09] MEDS: DESITIN 4OZ/NYSTATIN 15 GRAM MIXTURE PASTE TOP SCH ×2 (19:36→20:32)
[2018-03-09] MEDS: ROSUVASTATIN 10 MG TABLET PO SCH (20:31)
[2018-03-09] MEDS: oxyCODONE/ACETAMINOPHEN 5-325 MG TABLET PO PRN (20:39)
[2018-03-09] MEDS: ZALEPLON 5 MG CAPSULE PO PRN (20:39)
[2018-03-10] MEDS: ALBUTEROL/IPRATROPIUM 3 ML NEB RESP TX SCH ×4 (00:37→19:25)
[2018-03-10 04:08] LABS: Basophils # 0.1 10*3/uL (0.0-0.2); Basophils % 0.6 % (0.0-0.8); Eosinophils # 0.7 10*3/uL (0.0-0.87); Eosinophils % 7.7 % (0.00-10.9); Hematocrit 31.5 VOL% (35.7-47.0); Immature Granulocytes % 0.5 %; Immature Granulocytes Absolute 0.04 #; Lymphocytes # 1.8 10*3/uL (1.4-4.0); Lymphocytes % 20.7 % (21.3-54.2); Mean Corpuscular HGB Conc 31.7 GM/DL (32-36); Mean Corpuscular Hemoglobin 28 PG (27-34); Mean Platelet Volume 11.6 FL (9.6-12.0); Monocytes # 0.8 10*3/uL (0.11-0.8); Monocytes % 9.7 % (1.7-12.7); Neutrophils # 5.2 10*3/uL (1.4-7.4); Neutrophils % 60.8 % (38.7-73.9); Platelet Count 225 T/CUMM (130-400); Red Blood Count 3.54 MC/CUMM (3.8-5.5); Red Cell Distribution Width 13.5 % (9.3-17.3); White Blood Count 8.6 T/CUMM (4-12)
[2018-03-10 04:26] LABS: INR 2.4
[2018-03-10 04:30] LABS: PT Patient Result 26.2 SECS
[2018-03-10 04:35] LABS: Calcium 10.5 MG/DL (8.5-10.1); Osmolality,Calculated 273.1 MOS/KG (273-304); Potassium 3.5 MMOL/L (3.5-5.1)
[2018-03-10] MEDS: INSULIN REGULAR 100 UNIT/ML SUBCUT SCH ×4 (07:44→22:20)
[2018-03-10] MEDS: DOCUSATE SODIUM 100 MG CAPSULE PO SCH (08:38)
[2018-03-10] MEDS: FERROUS SULFATE 325 MG TABLET PO SCH (08:38)
[2018-03-10] MEDS: PANTOPRAZOLE 40 MG TABLET PO SCH (08:38)
[2018-03-10] MEDS: oxyCODONE/ACETAMINOPHEN 5-325 MG TABLET PO PRN ×2 (08:38→18:09)
[2018-03-10] MEDS: ASPIRIN EC 325 MG TABLET PO SCH (08:38)
[2018-03-10] MEDS: CHLORHEXIDINE 0.12% ORAL RINSE 60 ML BOTTLE SWISH/SPIT SCH ×2 (08:41→21:41)
[2018-03-10] MEDS: DESITIN 4OZ/NYSTATIN 15 GRAM MIXTURE PASTE TOP SCH ×2 (08:42→22:20)
[2018-03-10] MEDS: FUROSEMIDE INJ 100 MG in SODIUM CHLORIDE 0.9% 90 ML IV SCH (09:43)
[2018-03-10] MEDS: MAGNESIUM OXIDE 400 MG TABLET PO SCH ×2 (12:19→21:41)
[2018-03-10] MEDS: POTASSIUM CHLORIDE 20 MEQ TABLET PO SCH (12:19)
[2018-03-10] MEDS: POTASSIUM CHLORIDE RIDER 20 MEQ in PREMIX 1 EACH IV PRN (12:20)
[2018-03-10] MEDS: WARFARIN 2.5 MG TABLET PO SCH (18:08)
[2018-03-10] MEDS: FUROSEMIDE 40 MG/4 ML VIAL IV SCH (18:08)
[2018-03-10] MEDS: ROSUVASTATIN 10 MG TABLET PO SCH (21:41)
[2018-03-10] MEDS: POTASSIUM CHLORIDE 20 MEQ TABLET PO PRN (21:41)
[2018-03-11] MEDS: ALBUTEROL/IPRATROPIUM 3 ML NEB RESP TX SCH ×4 (00:16→19:26)
[2018-03-11 05:07] LABS: Basophils # 0.1 10*3/uL (0.0-0.2); Basophils % 0.5 % (0.0-0.8); Eosinophils # 0.6 10*3/uL (0.0-0.87); Eosinophils % 5.7 % (0.00-10.9); Hematocrit 32.6 VOL% (35.7-47.0); Hemoglobin 10.5 GM/DL (12.0-16.0); Immature Granulocytes % 0.5 %; Immature Granulocytes Absolute 0.05 #; Lymphocytes % 18.3 % (21.3-54.2); Mean Corpuscular HGB Conc 32.2 GM/DL (32-36); Mean Corpuscular Hemoglobin 29 PG (27-34); Mean Corpuscular Volume 89.1 FL (87-102); Mean Platelet Volume 11.6 FL (9.6-12.0); Monocytes % 8.9 % (1.7-12.7); Neutrophils # 7.3 10*3/uL (1.4-7.4); Neutrophils % 66.1 % (38.7-73.9); Platelet Count 254 T/CUMM (130-400); Red Blood Count 3.66 MC/CUMM (3.8-5.5); Red Cell Distribution Width 13.7 % (9.3-17.3); White Blood Count 11.1 T/CUMM (4-12)
[2018-03-11 05:23] LABS: Calcium 10.8 MG/DL (8.5-10.1); INR 1.8; Osmolality,Calculated 271.4 MOS/KG (273-304); PT Patient Result 19.1 SECS
[2018-03-11] MEDS: INSULIN REGULAR 100 UNIT/ML SUBCUT SCH ×4 (08:28→21:22)
[2018-03-11] MEDS: FUROSEMIDE 40 MG/4 ML VIAL IV SCH ×2 (08:28→15:16)
[2018-03-11] MEDS: ASPIRIN EC 325 MG TABLET PO SCH (08:29)
[2018-03-11] MEDS: CHLORHEXIDINE 0.12% ORAL RINSE 60 ML BOTTLE SWISH/SPIT SCH ×2 (08:29→21:40)
[2018-03-11] MEDS: MAGNESIUM OXIDE 400 MG TABLET PO SCH ×2 (08:29→21:38)
[2018-03-11] MEDS: DESITIN 4OZ/NYSTATIN 15 GRAM MIXTURE PASTE TOP SCH ×2 (08:29→21:40)
[2018-03-11] MEDS: POTASSIUM CHLORIDE 20 MEQ TABLET PO SCH (08:29)
[2018-03-11] MEDS: DOCUSATE SODIUM 100 MG CAPSULE PO SCH (08:29)
[2018-03-11] MEDS: FERROUS SULFATE 325 MG TABLET PO SCH (08:29)
[2018-03-11] MEDS: PANTOPRAZOLE 40 MG TABLET PO SCH (08:29)
[2018-03-11] MEDS: ACETAMINOPHEN 325 MG TABLET PO PRN ×3 (08:41→21:45)
[2018-03-11] MEDS: CARVEDILOL 3.125 MG TABLET PO SCH ×2 (14:28→21:38)
[2018-03-11] MEDS: WARFARIN 5 MG TABLET PO SCH (17:24)
[2018-03-11] MEDS: ROSUVASTATIN 10 MG TABLET PO SCH (21:37)
[2018-03-11] MEDS: ZALEPLON 5 MG CAPSULE PO PRN (21:45)
[2018-03-12] MEDS: ZALEPLON 5 MG CAPSULE PO PRN ×2 (00:24→20:52)
[2018-03-12] MEDS: ALBUTEROL/IPRATROPIUM 3 ML NEB RESP TX SCH ×4 (01:25→19:19)
[2018-03-12] MEDS: oxyCODONE/ACETAMINOPHEN 5-325 MG TABLET PO PRN (02:38)
[2018-03-12 04:30] LABS: Basophils # 0.1 10*3/uL (0.0-0.2); Basophils % 0.6 % (0.0-0.8); Eosinophils # 0.6 10*3/uL (0.0-0.87); Eosinophils % 6.6 % (0.00-10.9); Hematocrit 29.3 VOL% (35.7-47.0); Hemoglobin 9.3 GM/DL (12.0-16.0); Immature Granulocytes % 0.8 %; Immature Granulocytes Absolute 0.07 #; Lymphocytes # 1.6 10*3/uL (1.4-4.0); Lymphocytes % 17.5 % (21.3-54.2); Mean Corpuscular HGB Conc 31.7 GM/DL (32-36); Mean Corpuscular Hemoglobin 28 PG (27-34); Mean Corpuscular Volume 88.5 FL (87-102); Mean Platelet Volume 11.9 FL (9.6-12.0); Monocytes # 0.8 10*3/uL (0.11-0.8); Monocytes % 9.2 % (1.7-12.7); Neutrophils # 5.8 10*3/uL (1.4-7.4); Neutrophils % 65.3 % (38.7-73.9); Platelet Count 218 T/CUMM (130-400); Red Blood Count 3.31 MC/CUMM (3.8-5.5); Red Cell Distribution Width 13.7 % (9.3-17.3); White Blood Count 8.9 T/CUMM (4-12)
[2018-03-12 04:36] LABS: INR 1.9; PT Patient Result 20.2 SECS
[2018-03-12 04:54] LABS: Calcium 10.3 MG/DL (8.5-10.1); Osmolality,Calculated 265.9 MOS/KG (273-304); Potassium 3.8 MMOL/L (3.5-5.1)
[2018-03-12] MEDS: POTASSIUM CHLORIDE 20 MEQ TABLET PO PRN (05:28)
[2018-03-12] MEDS: ACETAMINOPHEN 325 MG TABLET PO PRN ×2 (09:15→18:57)
[2018-03-12] MEDS: INSULIN REGULAR 100 UNIT/ML SUBCUT SCH ×4 (09:16→20:45)
[2018-03-12] MEDS: FUROSEMIDE 40 MG/4 ML VIAL IV SCH ×2 (09:16→16:42)
[2018-03-12] MEDS: MAGNESIUM OXIDE 400 MG TABLET PO SCH ×2 (09:16→20:45)
[2018-03-12] MEDS: DOCUSATE SODIUM 100 MG CAPSULE PO SCH (09:16)
[2018-03-12] MEDS: FERROUS SULFATE 325 MG TABLET PO SCH (09:17)
[2018-03-12] MEDS: PANTOPRAZOLE 40 MG TABLET PO SCH (09:17)
[2018-03-12] MEDS: CARVEDILOL 3.125 MG TABLET PO SCH ×2 (09:17→20:45)
[2018-03-12] MEDS: ASPIRIN EC 325 MG TABLET PO SCH (09:17)
[2018-03-12] MEDS: CHLORHEXIDINE 0.12% ORAL RINSE 60 ML BOTTLE SWISH/SPIT SCH (09:17)
[2018-03-12] MEDS: POTASSIUM CHLORIDE 20 MEQ TABLET PO SCH (09:17)
[2018-03-12] MEDS: DESITIN 4OZ/NYSTATIN 15 GRAM MIXTURE PASTE TOP SCH (09:17)
[2018-03-12] MEDS: WARFARIN 5 MG TABLET PO SCH (18:57)
[2018-03-12] MEDS: ROSUVASTATIN 10 MG TABLET PO SCH (20:45)
[2018-03-13] MEDS: ALBUTEROL/IPRATROPIUM 3 ML NEB RESP TX SCH ×4 (01:00→19:03)
[2018-03-13] MEDS: CHLORHEXIDINE 0.12% ORAL RINSE 60 ML BOTTLE SWISH/SPIT SCH ×2 (01:26→09:15)
[2018-03-13] MEDS: DESITIN 4OZ/NYSTATIN 15 GRAM MIXTURE PASTE TOP SCH ×2 (01:26→09:15)
[2018-03-13 05:02] LABS: Basophils # 0.1 10*3/uL (0.0-0.2); Basophils % 0.5 % (0.0-0.8); Eosinophils # 0.4 10*3/uL (0.0-0.87); Eosinophils % 3.7 % (0.00-10.9); Hematocrit 31.2 VOL% (35.7-47.0); Immature Granulocytes % 0.5 %; Immature Granulocytes Absolute 0.05 #; Lymphocytes # 1.7 10*3/uL (1.4-4.0); Lymphocytes % 15.1 % (21.3-54.2); Mean Corpuscular HGB Conc 32.1 GM/DL (32-36); Mean Corpuscular Hemoglobin 28 PG (27-34); Mean Corpuscular Volume 88.6 FL (87-102); Mean Platelet Volume 11.7 FL (9.6-12.0); Monocytes # 1.1 10*3/uL (0.11-0.8); Monocytes % 9.7 % (1.7-12.7); Neutrophils # 7.8 10*3/uL (1.4-7.4); Neutrophils % 70.5 % (38.7-73.9); Platelet Count 229 T/CUMM (130-400); Red Blood Count 3.52 MC/CUMM (3.8-5.5); Red Cell Distribution Width 13.7 % (9.3-17.3); White Blood Count 11.1 T/CUMM (4-12)
[2018-03-13 05:07] LABS: INR 2.3
[2018-03-13 05:29] LABS: PT Patient Result 25.1 SECS
[2018-03-13 05:43] LABS: Calcium 10.7 MG/DL (8.5-10.1); Osmolality,Calculated 275.1 MOS/KG (273-304); Potassium 3.7 MMOL/L (3.5-5.1)
[2018-03-13] MEDS: INSULIN REGULAR 100 UNIT/ML SUBCUT SCH ×2 (08:41→16:58)
[2018-03-13] MEDS: FUROSEMIDE 40 MG/4 ML VIAL IV SCH (08:44)
[2018-03-13] MEDS: CARVEDILOL 3.125 MG TABLET PO SCH (09:10)
[2018-03-13] MEDS: PANTOPRAZOLE 40 MG TABLET PO SCH (09:10)
[2018-03-13] MEDS: DOCUSATE SODIUM 100 MG CAPSULE PO SCH (09:10)
[2018-03-13] MEDS: POTASSIUM CHLORIDE 20 MEQ TABLET PO SCH (09:10)
[2018-03-13] MEDS: ASPIRIN EC 325 MG TABLET PO SCH (09:10)
[2018-03-13] MEDS: MAGNESIUM OXIDE 400 MG TABLET PO SCH (09:11)
[2018-03-13] MEDS: FERROUS SULFATE 325 MG TABLET PO SCH (09:11)
[2018-03-13] MEDS: ACETAMINOPHEN 325 MG TABLET PO PRN ×2 (09:12→21:50)
[2018-03-13] MEDS ORDERED: CARVEDILOL 6.25 MG TABLET PO SCH (09:30)
[2018-03-13 11:28] VITALS: BP 117/60
[2018-03-13] MEDS: MAGNESIUM HYDROXIDE SUSP 30 ML UDCUP PO PRN (12:30)
[2018-03-13] MEDS: WARFARIN 5 MG TABLET PO SCH (18:30)
[2018-03-14] MEDS ORDERED: FUROSEMIDE 40 MG TABLET PO SCH (09:00)
== END 2018-03-13 21:52 | disposition swing bed (61) | DRG 235 ==
LOC: N.2W → PREINTOOBSV 10:21 → OBSVTOIN 11:02 → N.TELES 13:20 → N.CVR 02-26 08:54 → N.ICU 02-27 15:05 → N.TELES 03-04 16:16 → N.ICU 03-06 19:04 → N.TELES 03-10 13:52
PROVIDERS: ADMIT Internal Medicine Cardiovascular Disease; ATTEND Internal Medicine Cardiovascular Disease